=== PATIENT | female | born 1965 | race Caucasian/White ===

== ENCOUNTER 2016-10-19 20:40 | Emergency (ER) | payer MEDICAID ==
[~2016-10-19] VITALS: Ht 170.2 cm; Wt 113.6 kg
[~2016-10-19 20:40] MED LIST: ALBU18HF INH; AMLO5TAB2 PO; ASPI-515 PO; ATOR40TA78 PO; BUTA1CAP57 PO; CLIN60LO TP; CYCL-259 PO; DIPH50VI4 IVPush; ESTR0.6246 PO; FENO160T12 PO; FLUO10CA13 PO; GABA600T2 PO; HYDR-3240 PO; INSU100I13 SC; INSU100I18 SC; INSU100V5 SQ-INSULIN; LORA-445 PO; LOSA50TA2 PO; OMEP-110 PO; PROC10VI3 IV; PROC5TAB PO; SIMV20TA3 PO; TOPI25CA5 PO; TRAM-28 PO; TRAZ50TA18 PO; [UNRECOGNIZED DRUG - OTHER] PO
[2016-10-19] MEDS ORDERED: METOCLOPRAMIDE 5 MG/ML, 2ML IVPush ONE (21:30)
[2016-10-19] MEDS ORDERED: KETOROLAC 30 MG/1 ML IM ONE (21:30)
[2016-10-19] MEDS ORDERED: SODIUM CHLORIDE 0.9%, 500ML IVBOLUS ONE (21:30)
[2016-10-19] MEDS ORDERED: KETOROLAC 30 MG/1 ML ONE (21:34)
[2016-10-19] MEDS ORDERED: METOCLOPRAMIDE 5 MG/ML, 2ML ONE (21:34)
[2016-10-19] MEDS ORDERED: KETOROLAC 30 MG/1 ML IVPush ONE (22:00)
[2016-10-19 23:01] VITALS: BP 151/71
== END 2016-10-19 23:06 | disposition home or self-care (01) ==
LOC: ED 22:24
DX: G43.419 Hemiplegic migraine, intractable, without status migrainosus (principal); M54.5 Low back pain; G89.29 Other chronic pain; E11.9 Type 2 diabetes mellitus without complications; I10 Essential (primary) hypertension; Z86.73 Personal history of transient ischemic attack (TIA), and cerebral infarction without residual deficits; Z88.1 Allergy status to other antibiotic agents; Z88.8 Allergy status to other drugs, medicaments and biological substances
CPT/HCPCS: 36415; 70450; 80047; 85025; 85610; 85730; 96365; 96375; 99285; J1885; J2765; J7040

== ENCOUNTER 2016-11-25 12:50 | Observation (INO) | payer MEDICAID ==
[2016-11-25 14:53] LABS: ASPARTATE AMINO TRANSFERASE 18 U/L (15-37); BLOOD UREA NITROGEN 16 mg/dL (7-18)
[2016-11-25] MEDS ORDERED: LORazepam 2 MG/ML, 1ML ONE (15:02)
[2016-11-25 15:06] LABS: IS PT STATUS REG ER OR PRE ER? YES
[2016-11-25] MEDS ORDERED: GADOBUTROL 10 MMOL/10 ML PFS ONE (15:27)
[2016-11-25] MEDS ORDERED: ENALAPRILAT 1.25 MG/ML, 2ML IVPush PRN (17:30)
[2016-11-25] MEDS ORDERED: PROCHLORPERAZINE 5 MG/ML, 2ML IV PRN (17:30)
[2016-11-25] MEDS: BUTALB/APAP/CAFFEINE 50MG/325MG/40MG PO SCH ×2 (17:30→21:26)
[2016-11-25 17:41] VITALS: BP 130/87
[2016-11-25] MEDS ORDERED: MORPHINE SULFATE 4 MG/ML, 1ML IVPush PRN (18:00)
[2016-11-25 20:38] VITALS: BP 138/92
[2016-11-25] MEDS ORDERED: GABAPENTIN 300 MG CAPSULE PO SCH (21:00)
[2016-11-25] MEDS ORDERED: TRAZODONE 50MG TABLET PO SCH (21:00)
[2016-11-25] MEDS: INSULIN REGULAR 100 UNITS/ML, 3ML VIAL SQ-INSULIN SCH (21:00)
[2016-11-25] MEDS ORDERED: ATORVASTATIN 40 MG TABLET PO SCH (21:00)
[2016-11-25] MEDS: SODIUM CHLORIDE FLUSH 3ML SYRINGE IVF SCH (21:27)
[2016-11-25] MEDS: INSULIN DETEMIR 100 UNITS/ML, PEN SQ-INSULIN SCH (21:28)
[2016-11-26] MEDS: BUTALB/APAP/CAFFEINE 50MG/325MG/40MG PO SCH ×4 (01:30→13:27)
[2016-11-26 02:50] VITALS: BP 158/89
[2016-11-26] MEDS ORDERED: ASPIRIN 81 MG TABLET EC PO SCH (06:00)
[2016-11-26] MEDS: INSULIN REGULAR 100 UNITS/ML, 3ML VIAL SQ-INSULIN SCH ×2 (07:00→11:00)
[2016-11-26] MEDS ORDERED: PROCHLORPERAZINE 5 MG TABLET PO SCH (09:00)
[2016-11-26] MEDS ORDERED: FENOFIBRATE 145 MG TABLET PO SCH (09:00)
[2016-11-26] MEDS: SODIUM CHLORIDE FLUSH 3ML SYRINGE IVF SCH (09:00)
[2016-11-26] MEDS ORDERED: FLUOXETINE 10 MG CAP PO SCH (09:00)
[2016-11-26] MEDS ORDERED: LOSARTAN 50MG TABLET PO SCH (09:00)
[2016-11-26] MEDS: INSULIN DETEMIR 100 UNITS/ML, PEN SQ-INSULIN SCH (09:00)
[2016-11-26 09:59] VITALS: BP 147/81
[2016-11-26] MEDS ORDERED: INSULIN REGULAR 100 UNITS/ML, 3ML VIAL SQ-INSULIN SCH (12:00)
[2016-11-26] MEDS ORDERED: INSULIN ASPART 100 UNITS/ML, PEN SQ-INSULIN SCH (12:30)
[2016-11-27 14:38] LABS: IS PT STATUS REG ER OR PRE ER? NO
== END 2016-11-26 14:10 | disposition home or self-care (01) ==
LOC: ED 12:50 → INTOOBSV 15:38 → EDIP 15:38 → OBSVTOIN 15:38 → 4WST 17:27 → DCLOUNGE 11-26 13:50
PROVIDERS: ADMIT Internal Medicine; ATTEND Family Medicine
DX: G43.809 Other migraine, not intractable, without status migrainosus (principal); E11.9 Type 2 diabetes mellitus without complications; Z83.49 Family history of other endocrine, nutritional and metabolic diseases; Z82.49 Family history of ischemic heart disease and other diseases of the circulatory system; Z86.73 Personal history of transient ischemic attack (TIA), and cerebral infarction without residual deficits
CPT/HCPCS: 36415; 70450; 70553; 71010; 80053; 82962; 84484; 85025; 85610; 85730; 93005; 96372; 97162; 97166; 99285; A9585; G0378; J1815; Q0164

== ENCOUNTER 2017-02-21 15:53 | Emergency (ER) | payer MEDICAID ==
[~2017-02-21] VITALS: Ht 170.2 cm; Wt 128.9 kg
[~2017-02-21 15:53] MED LIST changes: +DIPH50VI IVPush; -DIPH50VI4 IVPush; -TRAM-28 PO; +TRAM-47 PO
[2017-02-21] MEDS ORDERED: FIORICET PO (17:37)
[2017-02-21] MEDS ORDERED: PROM12.553 RC (17:37)
[2017-02-21] MEDS ORDERED: INSU300I SQ (17:37)
[2017-02-21] MEDS ORDERED: HYDROcodone/APAP 5/325 TABLET ONE (17:52)
[2017-02-21] MEDS ORDERED: KETOROLAC 30 MG/1 ML ONE (17:52)
[2017-02-21] MEDS ORDERED: ASPIRIN 81 MG TABLET CHEW ONE (18:23)
[2017-02-21] MEDS ORDERED: ASPIRIN 81 MG TABLET CHEW PO ONE (18:30)
[2017-02-21 18:32] LABS: HEMATOCRIT 42.8 % (34.6-47.8); HEMOGLOBIN 13.8 g/dL (11.7-16.4); WHITE BLOOD COUNT 11.3 x10^3/uL (3.4-10)
[2017-02-21 18:40] VITALS: BP 145/93
[2017-02-21 18:41] LABS: BLOOD UREA NITROGEN 21 mg/dL (7-18)
== END 2017-02-21 20:27 | disposition home or self-care (01) ==
LOC: ED 18:13
DX: R07.89 Other chest pain (principal); M94.0 Chondrocostal junction syndrome [Tietze]; G89.29 Other chronic pain; E11.9 Type 2 diabetes mellitus without complications; I10 Essential (primary) hypertension; E78.00 Pure hypercholesterolemia, unspecified; G43.909 Migraine, unspecified, not intractable, without status migrainosus; Z79.82 Long term (current) use of aspirin; Z86.73 Personal history of transient ischemic attack (TIA), and cerebral infarction without residual deficits
CPT/HCPCS: 36415; 71010; 80048; 82040; 84484; 85025; 93005; 99285

== ENCOUNTER 2017-05-13 11:53 | Emergency (ER) | payer MEDICAID ==
[~2017-05-13] VITALS: Ht 172.7 cm; Wt 134.1 kg
[~2017-05-13 11:53] MED LIST changes: +FIORICET PO; +INSU300I SQ; +PROM12.553 RC
[2017-05-13 11:54] VITALS: BP 197/103
[2017-05-13] MEDS ORDERED: HYDROcodone/APAP 5/325 TABLET ONE (12:37)
[2017-05-13] MEDS ORDERED: HYDROcodone/APAP 5/325 TABLET PO PRN (13:00)
== END 2017-05-13 13:28 | disposition home or self-care (01) ==
LOC: ED 13:25
DX: S62.035A Nondisplaced fracture of proximal third of navicular [scaphoid] bone of left wrist, initial encounter for closed fracture (principal); G89.11 Acute pain due to trauma; E66.01 Morbid (severe) obesity due to excess calories; E78.00 Pure hypercholesterolemia, unspecified; I10 Essential (primary) hypertension; G89.29 Other chronic pain; E11.65 Type 2 diabetes mellitus with hyperglycemia; G43.909 Migraine, unspecified, not intractable, without status migrainosus; Z88.1 Allergy status to other antibiotic agents; W18.30XA Fall on same level, unspecified, initial encounter; Y93.89 Activity, other specified; Y92.89 Other specified places as the place of occurrence of the external cause; Y99.8 Other external cause status
CPT/HCPCS: 29125; 99284

== ENCOUNTER 2017-08-27 21:15 | Emergency (ER) | payer MEDICAID ==
[~2017-08-27] VITALS: Ht 170.2 cm; Wt 131.8 kg
[2017-08-27] MEDS ORDERED: METOCLOPRAMIDE 5 MG/ML, 2ML ONE (23:55)
[2017-08-28] MEDS ORDERED: METOCLOPRAMIDE 5 MG/ML, 2ML IVPush ONE
[2017-08-28] MEDS ORDERED: SODIUM CHLORIDE 0.9%, 500ML IVBOLUS ONE
[2017-08-28 07:09] VITALS: BP 144/77
== END 2017-08-28 07:11 | disposition home or self-care (01) ==
LOC: ED 23:44
DX: R51 Headache (principal); I10 Essential (primary) hypertension; E11.9 Type 2 diabetes mellitus without complications; E66.01 Morbid (severe) obesity due to excess calories; G43.909 Migraine, unspecified, not intractable, without status migrainosus; Z86.73 Personal history of transient ischemic attack (TIA), and cerebral infarction without residual deficits; Z88.1 Allergy status to other antibiotic agents
CPT/HCPCS: 96374; 99284; J2765; J7040

== ENCOUNTER 2018-01-06 21:54 | Inpatient (IN) | payer MEDICAID, OTHER ==
[~2018-01-06] VITALS: Ht 170.2 cm; Wt 144.6 kg
[2018-01-06 23:05] LABS: BASOPHILS # (AUTO) 0.07 x10^3/uL (0-0.1); BASOPHILS % (AUTO) 1 % (0-1); EOSINOPHILS # (AUTO) 0.18 x10^3/uL (0-0.4); EOSINOPHILS % (AUTO) 2 % (1-7); LYMPHOCYTES # (AUTO) 3.36 x10^3/uL (1-3.4); LYMPHOCYTES % (AUTO) 29 % (22-44); MD NO; MEAN CORPUSCULAR HEMOGLOBIN 28.2 pg (27.0-34.8); MEAN CORPUSCULAR HGB CONC 33.2 g/dL (32.4-35.8); MEAN PLATELET VOLUME 10.1 fL (7.4-10.4); MONOCYTES # (AUTO) 0.69 x10^3/uL (0.2-0.8); MONOCYTES % (AUTO) 6 % (2-9); NEUTROPHILS # (AUTO) 7.26 x10^3/uL (1.8-6.8); NEUTROPHILS % (AUTO) 63 % (42-75); PLATELET COUNT 274 x10^3/uL (130-400); RED CELL DISTRIBUTION WIDTH 16.9 % (9.6-15.2)
[2018-01-06 23:18] LABS: ALANINE AMINOTRANSFERASE 51 U/L (12-78); ALBUMIN 3.1 g/dL (3.4-5.0); ANION GAP 9 mmol/L (5-15); CALCIUM 9.6 mg/dL (8.5-10.1); CHLORIDE 106 mmol/L (98-107); CREATININE 1.66 mg/dL (0.55-1.02)
[2018-01-06 23:20] LABS: ALKALINE PHOSPHATASE 63 U/L (45-117); BILIRUBIN,TOTAL 0.2 mg/dL (0.2-1.0); TOTAL PROTEIN 6.6 g/dL (6.4-8.2)
[2018-01-07] MEDS ORDERED: CLINDAMYCIN PMX 600MG/50ML 50 ML IV ONE (00:30)
[2018-01-07] MEDS ORDERED: CLINDAMYCIN PMX 600MG/50ML 50 ML ONE (00:40)
[2018-01-07] MEDS ORDERED: SODIUM CHLORIDE 0.9% 1,000 ML IV ONE (00:49)
[2018-01-07] MEDS ORDERED: ONDANSETRON 2MG/ML, 2ML IVPush PRN (01:00)
[2018-01-07] MEDS ORDERED: DIVA-68 PO (01:12)
[2018-01-07] MEDS ORDERED: FENO160T PO (01:12)
[2018-01-07] MEDS ORDERED: AMLO5TAB2 PO (01:12)
[2018-01-07] MEDS ORDERED: FLUO10CA7 PO (01:12)
[2018-01-07] MEDS ORDERED: AIMOVIG PO (01:13)
[2018-01-07] MEDS ORDERED: ENOXAPARIN 30 MG/0.3 ML SQ SCH (01:30)
[2018-01-07] MEDS ORDERED: DEXTROSE 4 GM TAB.CHEW PO PRN (01:30)
[2018-01-07] MEDS ORDERED: PROMETHAZINE 12.5 MG SUPP PR SCH (01:30)
[2018-01-07] MEDS ORDERED: GLUCAGON 1 MG IM PRN (01:30)
[2018-01-07] MEDS ORDERED: DEXTROSE 50%, 50ML SYRINGE IVPush PRN (01:30)
[2018-01-07] MEDS ORDERED: ONDANSETRON ODT 4 MG PO PRN (01:30)
[2018-01-07] MEDS ORDERED: POLYETHYLENE GLYCOL 17 GM PACKET PO PRN (01:30)
[2018-01-07] MEDS ORDERED: HYDROCHLOROTHIAZIDE 12.5 MG CAPSULE PO ONE (02:00)
[2018-01-07 02:35] VITALS: BP 112/76
[2018-01-07] MEDS: SODIUM CHLORIDE 0.9% 1,000 ML IV SCH ×2 (02:37→12:34)
[2018-01-07 03:07] LABS: BASOPHILS # (AUTO) 0.03 x10^3/uL (0-0.1); BASOPHILS % (AUTO) 0 % (0-1); EOSINOPHILS # (AUTO) 0.22 x10^3/uL (0-0.4); EOSINOPHILS % (AUTO) 2 % (1-7); LYMPHOCYTES # (AUTO) 3.88 x10^3/uL (1-3.4); LYMPHOCYTES % (AUTO) 32 % (22-44); MD NO; MEAN CORPUSCULAR HEMOGLOBIN 28.3 pg (27.0-34.8); MEAN CORPUSCULAR HGB CONC 33.1 g/dL (32.4-35.8); MEAN CORPUSCULAR VOLUME 85.6 fL (80-100); MEAN PLATELET VOLUME 9.6 fL (7.4-10.4); MONOCYTES # (AUTO) 1.13 x10^3/uL (0.2-0.8); MONOCYTES % (AUTO) 10 % (2-9); NEUTROPHILS % (AUTO) 56 % (42-75); PLATELET COUNT 274 x10^3/uL (130-400); RED BLOOD COUNT 5.02 x10^6/uL (3.82-5.3); RED CELL DISTRIBUTION WIDTH 16.9 % (9.6-15.2)
[2018-01-07 03:16] LABS: MICROSCOPIC AUTO
[2018-01-07 03:19] LABS: ANION GAP 7 mmol/L (5-15); CALCIUM 9.4 mg/dL (8.5-10.1); CHLORIDE 107 mmol/L (98-107); CREATININE 1.38 mg/dL (0.55-1.02)
[2018-01-07 03:34] LABS: CULTURE INDICATED? YES
[2018-01-07 05:17] VITALS: BP 112/76
[2018-01-07 06:46] VITALS: BP 103/72
[2018-01-07] MEDS: SODIUM CHLORIDE FLUSH 10ML SYR IVF SCH ×2 (08:11→19:51)
[2018-01-07] MEDS: FLUOXETINE 10 MG CAP PO SCH (08:12)
[2018-01-07] MEDS: FAMOTIDINE 20 MG TABLET PO SCH ×2 (08:13→19:51)
[2018-01-07] MEDS: SENNA/DOCUSATE TABLET PO SCH (08:13)
[2018-01-07] MEDS: FUROSEMIDE 20 MG TABLET PO SCH (08:13)
[2018-01-07] MEDS: FENOFIBRATE 145 MG TABLET PO SCH (08:17)
[2018-01-07] MEDS: ENOXAPARIN 40 MG/0.4 ML SQ SCH (08:17)
[2018-01-07] MEDS ORDERED: LOSARTAN POTASSIUM 100 MG PO SCH (09:00)
[2018-01-07] MEDS ORDERED: TEMPLATE NON-FORMULARY MED. (Amlodipine Besylate** 5 MG) PO SCH (09:00)
[2018-01-07] MEDS ORDERED: DIVALPROEX SODIUM 500 MG PO SCH (09:00)
[2018-01-07] MEDS: CLINDAMYCIN PMX 600MG/50ML 50 ML IV SCH ×2 (10:13→17:38)
[2018-01-07] MEDS: CLINDAMYCIN TP SCH (10:13)
[2018-01-07] MEDS: INSULIN LISPRO 100 UNITS/ML, PEN SQ-INSULIN SCH ×4 (10:29→20:01)
[2018-01-07 13:55] VITALS: BP 111/77
[2018-01-07] MEDS: TRAZODONE 50MG TABLET PO SCH (19:50)
[2018-01-07] MEDS: ATORVASTATIN 40 MG TABLET PO SCH (19:51)
[2018-01-07] MEDS ORDERED: INSULIN GLARGINE 100 UNITS/ML, PEN SQ-INSULIN SCH ×2 (21:00)
[2018-01-07] MEDS ORDERED: TEMPLATE NON-FORMULARY MED. (Gabapentin** 600 MG) PO SCH (21:00)
[2018-01-07] MEDS: INSULIN GLARGINE 100 UNITS/ML, PEN SQ-INSULIN SCH (21:04)
[2018-01-07 21:24] VITALS: BP 130/83
[2018-01-08] MEDS ORDERED: SODIUM CHLORIDE 0.9% 1,000 ML IV SCH (01:10)
[2018-01-08] MEDS: CLINDAMYCIN PMX 600MG/50ML 50 ML IV SCH ×3 (01:16→17:20)
[2018-01-08 02:00] VITALS: BP 143/81
[2018-01-08 05:51] LABS: ANION GAP 7 mmol/L (5-15); CALCIUM 8.8 mg/dL (8.5-10.1); CHLORIDE 107 mmol/L (98-107); CREATININE 0.92 mg/dL (0.55-1.02)
[2018-01-08 06:03] LABS: BASOPHILS # (AUTO) 0.04 x10^3/uL (0-0.1); BASOPHILS % (AUTO) 1 % (0-1); EOSINOPHILS # (AUTO) 0.17 x10^3/uL (0-0.4); EOSINOPHILS % (AUTO) 2 % (1-7); LYMPHOCYTES # (AUTO) 2.28 x10^3/uL (1-3.4); LYMPHOCYTES % (AUTO) 31 % (22-44); MD NO; MEAN CORPUSCULAR HGB CONC 32.8 g/dL (32.4-35.8); MEAN CORPUSCULAR VOLUME 85.4 fL (80-100); MEAN PLATELET VOLUME 9.7 fL (7.4-10.4); MONOCYTES # (AUTO) 0.71 x10^3/uL (0.2-0.8); MONOCYTES % (AUTO) 10 % (2-9); NEUTROPHILS # (AUTO) 4.27 x10^3/uL (1.8-6.8); NEUTROPHILS % (AUTO) 57 % (42-75); PLATELET COUNT 218 x10^3/uL (130-400); RED BLOOD COUNT 4.74 x10^6/uL (3.82-5.3); RED CELL DISTRIBUTION WIDTH 16.5 % (9.6-15.2)
[2018-01-08] MEDS: INSULIN LISPRO 100 UNITS/ML, PEN SQ-INSULIN SCH ×4 (07:00→21:13)
[2018-01-08 07:02] VITALS: BP 136/83
[2018-01-08] MEDS: CLINDAMYCIN TP SCH (09:00)
[2018-01-08] MEDS: SENNA/DOCUSATE TABLET PO SCH (09:00)
[2018-01-08] MEDS: SODIUM CHLORIDE FLUSH 10ML SYR IVF SCH ×2 (09:44→21:00)
[2018-01-08] MEDS: INSULIN GLARGINE 100 UNITS/ML, PEN SQ-INSULIN SCH ×2 (09:45→21:12)
[2018-01-08] MEDS: ENOXAPARIN 40 MG/0.4 ML SQ SCH (09:45)
[2018-01-08] MEDS: FLUOXETINE 10 MG CAP PO SCH (09:46)
[2018-01-08] MEDS: FAMOTIDINE 20 MG TABLET PO SCH ×2 (09:46→21:05)
[2018-01-08] MEDS: FENOFIBRATE 145 MG TABLET PO SCH (09:46)
[2018-01-08] MEDS: FUROSEMIDE 20 MG TABLET PO SCH (09:47)
[2018-01-08 12:17] VITALS: BP 121/77
[2018-01-08] MEDS: GABAPENTIN 400 MG CAPSULE PO SCH ×2 (15:59→21:05)
[2018-01-08] MEDS ORDERED: POTASSIUM CHLORIDE 20 MEQ TAB.ER.PRT PO SCH (17:00)
[2018-01-08] MEDS ORDERED: FUROSEMIDE 20 MG TABLET PO SCH (17:00)
[2018-01-08 18:45] VITALS: BP 127/83
[2018-01-08] MEDS: TRAZODONE 50MG TABLET PO SCH (21:05)
[2018-01-08] MEDS: ATORVASTATIN 40 MG TABLET PO SCH (21:05)
[2018-01-09 00:43] VITALS: BP 115/61
[2018-01-09] MEDS: CLINDAMYCIN PMX 600MG/50ML 50 ML IV SCH ×2 (00:51→09:33)
[2018-01-09 05:33] LABS: BASOPHILS # (AUTO) 0.05 x10^3/uL (0-0.1); BASOPHILS % (AUTO) 1 % (0-1); EOSINOPHILS # (AUTO) 0.21 x10^3/uL (0-0.4); EOSINOPHILS % (AUTO) 2 % (1-7); LYMPHOCYTES # (AUTO) 2.79 x10^3/uL (1-3.4); LYMPHOCYTES % (AUTO) 31 % (22-44); MD NO; MEAN CORPUSCULAR HEMOGLOBIN 28.6 pg (27.0-34.8); MEAN CORPUSCULAR HGB CONC 33.2 g/dL (32.4-35.8); MEAN CORPUSCULAR VOLUME 86.1 fL (80-100); MEAN PLATELET VOLUME 9.7 fL (7.4-10.4); MONOCYTES # (AUTO) 0.81 x10^3/uL (0.2-0.8); MONOCYTES % (AUTO) 9 % (2-9); NEUTROPHILS # (AUTO) 5.02 x10^3/uL (1.8-6.8); NEUTROPHILS % (AUTO) 57 % (42-75); PLATELET COUNT 250 x10^3/uL (130-400); RED BLOOD COUNT 4.91 x10^6/uL (3.82-5.3); RED CELL DISTRIBUTION WIDTH 16.5 % (9.6-15.2)
[2018-01-09 05:44] LABS: ANION GAP 6 mmol/L (5-15); CALCIUM 9.1 mg/dL (8.5-10.1); CHLORIDE 107 mmol/L (98-107); CREATININE 0.95 mg/dL (0.55-1.02)
[2018-01-09] MEDS: INSULIN LISPRO 100 UNITS/ML, PEN SQ-INSULIN SCH ×2 (08:04→12:18)
[2018-01-09] MEDS: ENOXAPARIN 40 MG/0.4 ML SQ SCH (08:31)
[2018-01-09] MEDS: GABAPENTIN 400 MG CAPSULE PO SCH (08:31)
[2018-01-09] MEDS: FLUOXETINE 10 MG CAP PO SCH (08:32)
[2018-01-09] MEDS: FAMOTIDINE 20 MG TABLET PO SCH (08:32)
[2018-01-09] MEDS: FENOFIBRATE 145 MG TABLET PO SCH (08:32)
[2018-01-09] MEDS: INSULIN GLARGINE 100 UNITS/ML, PEN SQ-INSULIN SCH (08:32)
[2018-01-09] MEDS: SENNA/DOCUSATE TABLET PO SCH (08:33)
[2018-01-09] MEDS: SODIUM CHLORIDE FLUSH 10ML SYR IVF SCH (08:33)
[2018-01-09] MEDS: CLINDAMYCIN TP SCH (08:33)
[2018-01-09] MEDS: FUROSEMIDE 20 MG TABLET PO SCH (08:33)
[2018-01-09 08:39] VITALS: BP 164/102
[2018-01-09 13:14] VITALS: BP 124/77
[2018-01-09] MEDS ORDERED: SULF1TAB24 PO (15:14)
== END 2018-01-09 19:41 | disposition home or self-care (01) | DRG 603 ==
LOC: ED 23:59 → EDIP 01-07 00:49 → 3NE 01-07 02:06
PROVIDERS: ADMIT Student in an Organized Health Care Education/Training Program; ATTEND Student in an Organized Health Care Education/Training Program
DX: L03.116 Cellulitis of left lower limb (principal); Z68.42 Body mass index [BMI] 45.0-49.9, adult; I69.351 Hemiplegia and hemiparesis following cerebral infarction affecting right dominant side; N17.9 Acute kidney failure, unspecified; E11.9 Type 2 diabetes mellitus without complications; E66.01 Morbid (severe) obesity due to excess calories; Z88.8 Allergy status to other drugs, medicaments and biological substances; Z88.6 Allergy status to analgesic agent; Z91.041 Radiographic dye allergy status; E78.00 Pure hypercholesterolemia, unspecified; E78.5 Hyperlipidemia, unspecified; F32.9 Major depressive disorder, single episode, unspecified; G43.909 Migraine, unspecified, not intractable, without status migrainosus; I10 Essential (primary) hypertension; I87.2 Venous insufficiency (chronic) (peripheral); J45.909 Unspecified asthma, uncomplicated; Z79.4 Long term (current) use of insulin; Z87.442 Personal history of urinary calculi; Z88.9 Allergy status to unspecified drugs, medicaments and biological substances; Z90.710 Acquired absence of both cervix and uterus; Z83.3 Family history of diabetes mellitus
CPT/HCPCS: 36415; 80048; 80053; 81001; 82962; 83605; 84145; 85025; 87040; 87070; 87077; 87086; 87147; 87181; 87186; 87205; 99285; J1650; J1815; J7030

== ENCOUNTER → 2018-01-13 | Outpatient (CLI) | payer MEDICAID ==
[~2018-01-13] MED LIST changes: +AIMOVIG PO; +DIVA-61 PO; +FENO160T PO; +FLUO10CA7 PO; +SULF1TAB24 PO; +TRAZ-136 PO; -TRAZ50TA18 PO
== END | disposition home or self-care (01) ==
LOC: WOUND 09:00
PROVIDERS: ATTEND Internal Medicine
DX: E11.622 Type 2 diabetes mellitus with other skin ulcer (principal); L97.312 Non-pressure chronic ulcer of right ankle with fat layer exposed; L97.821 Non-pressure chronic ulcer of other part of left lower leg limited to breakdown of skin; E78.5 Hyperlipidemia, unspecified; E66.01 Morbid (severe) obesity due to excess calories; F32.9 Major depressive disorder, single episode, unspecified; E78.00 Pure hypercholesterolemia, unspecified; J45.909 Unspecified asthma, uncomplicated; I10 Essential (primary) hypertension; I87.2 Venous insufficiency (chronic) (peripheral); Z86.73 Personal history of transient ischemic attack (TIA), and cerebral infarction without residual deficits; Z90.710 Acquired absence of both cervix and uterus; Z68.42 Body mass index [BMI] 45.0-49.9, adult; Z79.4 Long term (current) use of insulin
CPT/HCPCS: 97597; 99215

== ENCOUNTER → 2018-01-20 | Outpatient (CLI) | payer MEDICAID ==
[~2018-01-20] MED LIST changes: +ACETAM; -AMLO5TAB2 PO; +AMLO5TAB7 PO; +AMLODIPINE; +AMOX1TAB12 PO; -DIPH50VI IVPush; +DIPH50VI10 IVPush; +DIVALPROEX; +GABA800T2 PO; -PROC5TAB PO; +PROC5TAB2 PO; +PROMETHAZINE; +[UNRECOGNIZED DRUG - OTHER]
== END | disposition home or self-care (01) ==
LOC: WOUND 10:00
PROVIDERS: ATTEND Internal Medicine
DX: E11.622 Type 2 diabetes mellitus with other skin ulcer (principal); L97.312 Non-pressure chronic ulcer of right ankle with fat layer exposed; L97.821 Non-pressure chronic ulcer of other part of left lower leg limited to breakdown of skin; E78.5 Hyperlipidemia, unspecified; E66.01 Morbid (severe) obesity due to excess calories; F32.9 Major depressive disorder, single episode, unspecified; E78.00 Pure hypercholesterolemia, unspecified; E03.9 Hypothyroidism, unspecified; J45.909 Unspecified asthma, uncomplicated; I87.2 Venous insufficiency (chronic) (peripheral); E11.42 Type 2 diabetes mellitus with diabetic polyneuropathy; I11.0 Hypertensive heart disease with heart failure; I50.9 Heart failure, unspecified; G43.909 Migraine, unspecified, not intractable, without status migrainosus; Z86.73 Personal history of transient ischemic attack (TIA), and cerebral infarction without residual deficits; Z90.710 Acquired absence of both cervix and uterus; Z88.4 Allergy status to anesthetic agent; Z88.1 Allergy status to other antibiotic agents; Z88.5 Allergy status to narcotic agent; Z88.8 Allergy status to other drugs, medicaments and biological substances; Z88.6 Allergy status to analgesic agent; Z91.030 Bee allergy status; Z79.4 Long term (current) use of insulin; Z68.43 Body mass index [BMI] 50.0-59.9, adult; Z79.899 Other long term (current) drug therapy
CPT/HCPCS: 97597

== ENCOUNTER → 2018-01-27 | Outpatient (CLI) | payer MEDICAID ==
[~2018-01-27] MED LIST changes: -ACETAM; +AMLO5TAB2 PO; -AMLO5TAB7 PO; -AMLODIPINE; -AMOX1TAB12 PO; +DIPH50VI IVPush; -DIPH50VI10 IVPush; -DIVALPROEX; -GABA800T2 PO; +PROC5TAB PO; -PROC5TAB2 PO; -PROMETHAZINE; -[UNRECOGNIZED DRUG - OTHER]
== END | disposition home or self-care (01) ==
LOC: WOUND 10:24
PROVIDERS: ATTEND Internal Medicine
DX: E11.622 Type 2 diabetes mellitus with other skin ulcer (principal); L97.821 Non-pressure chronic ulcer of other part of left lower leg limited to breakdown of skin; L97.312 Non-pressure chronic ulcer of right ankle with fat layer exposed; I10 Essential (primary) hypertension; E66.01 Morbid (severe) obesity due to excess calories; E78.5 Hyperlipidemia, unspecified; E78.00 Pure hypercholesterolemia, unspecified; I87.2 Venous insufficiency (chronic) (peripheral); G43.909 Migraine, unspecified, not intractable, without status migrainosus; J45.909 Unspecified asthma, uncomplicated; F32.9 Major depressive disorder, single episode, unspecified; Z68.42 Body mass index [BMI] 45.0-49.9, adult; Z79.4 Long term (current) use of insulin; Z90.710 Acquired absence of both cervix and uterus; Z86.73 Personal history of transient ischemic attack (TIA), and cerebral infarction without residual deficits; Z88.9 Allergy status to unspecified drugs, medicaments and biological substances
CPT/HCPCS: 97597

== ENCOUNTER → 2018-03-05 | Outpatient (CLI) | payer MEDICAID ==
[~2018-03-05] MED LIST changes: +ACETAM; -AMLO5TAB2 PO; +AMLO5TAB7 PO; +AMLODIPINE; +AMOX1TAB12 PO; -DIPH50VI IVPush; +DIPH50VI10 IVPush; +DIVALPROEX; +GABA800T2 PO; -PROC5TAB PO; +PROC5TAB2 PO; +PROMETHAZINE; +[UNRECOGNIZED DRUG - OTHER]
== END | disposition home or self-care (01) ==
LOC: CVU 09:18
PROVIDERS: ATTEND Internal Medicine
DX: I70.202 Unspecified atherosclerosis of native arteries of extremities, left leg (principal); I87.2 Venous insufficiency (chronic) (peripheral); E11.8 Type 2 diabetes mellitus with unspecified complications; L97.821 Non-pressure chronic ulcer of other part of left lower leg limited to breakdown of skin; M79.89 Other specified soft tissue disorders; I10 Essential (primary) hypertension; I69.354 Hemiplegia and hemiparesis following cerebral infarction affecting left non-dominant side; E78.5 Hyperlipidemia, unspecified; E78.00 Pure hypercholesterolemia, unspecified
CPT/HCPCS: 93922; 93925; 93970

== ENCOUNTER → 2018-03-22 | Outpatient (CLI) | payer MEDICAID | END | disposition home or self-care (01) | LOC: WOUND 10:05 | PROVIDERS: ATTEND Internal Medicine | DX: E11.622 Type 2 diabetes mellitus with other skin ulcer (principal); L97.312 Non-pressure chronic ulcer of right ankle with fat layer exposed; E11.42 Type 2 diabetes mellitus with diabetic polyneuropathy; I10 Essential (primary) hypertension; F32.9 Major depressive disorder, single episode, unspecified; J45.909 Unspecified asthma, uncomplicated; G43.909 Migraine, unspecified, not intractable, without status migrainosus; E78.5 Hyperlipidemia, unspecified; E78.00 Pure hypercholesterolemia, unspecified; E03.9 Hypothyroidism, unspecified; E66.01 Morbid (severe) obesity due to excess calories; Z68.43 Body mass index [BMI] 50.0-59.9, adult; Z90.710 Acquired absence of both cervix and uterus; Z79.4 Long term (current) use of insulin; Z86.73 Personal history of transient ischemic attack (TIA), and cerebral infarction without residual deficits; Z88.5 Allergy status to narcotic agent; Z88.8 Allergy status to other drugs, medicaments and biological substances; Z88.1 Allergy status to other antibiotic agents; Z91.030 Bee allergy status; Z91.041 Radiographic dye allergy status | CPT/HCPCS: 99213 ==

== ENCOUNTER 2018-05-27 13:02 | Emergency (ER) | payer MEDICAID ==
[~2018-05-27] VITALS: Ht 170.2 cm; Wt 141.0 kg
[~2018-05-27 13:02] MED LIST changes: +AMLO-150 PO; -AMLO5TAB7 PO; -TRAZ-136 PO; +TRAZ50TA66 PO
[2018-05-27] MEDS ORDERED: SODIUM CHLORIDE FLUSH 10ML SYR IVF ONE (14:00)
[2018-05-27] MEDS ORDERED: KETOROLAC 30 MG/1 ML IVPush ONE (14:00)
[2018-05-27] MEDS ORDERED: ACETAMINOPHEN 325 MG TABLET PO ONE (14:00)
[2018-05-27] MEDS ORDERED: PROCHLORPERAZINE 5 MG/ML, 2ML IVPush ONE (14:00)
[2018-05-27] MEDS ORDERED: DIPHENHYDRAMINE 50 MG/ML, 1ML IVPush ONE (14:00)
[2018-05-27 14:15] LABS: BASOPHILS # (AUTO) 0.02 x10^3/uL (0-0.1); BASOPHILS % (AUTO) 0 % (0-1); EOSINOPHILS # (AUTO) 0.29 x10^3/uL (0-0.4); EOSINOPHILS % (AUTO) 3 % (1-7); LYMPHOCYTES # (AUTO) 2.08 x10^3/uL (1-3.4); LYMPHOCYTES % (AUTO) 20 % (22-44); MD NO; MEAN CORPUSCULAR HEMOGLOBIN 27.2 pg (27.0-34.8); MEAN CORPUSCULAR VOLUME 82.2 fL (80-100); MEAN PLATELET VOLUME 9.5 fL (7.4-10.4); MONOCYTES # (AUTO) 0.63 x10^3/uL (0.2-0.8); MONOCYTES % (AUTO) 6 % (2-9); NEUTROPHILS # (AUTO) 7.26 x10^3/uL (1.8-6.8); NEUTROPHILS % (AUTO) 71 % (42-75); PLATELET COUNT 287 x10^3/uL (130-400); RED BLOOD COUNT 5.15 x10^6/uL (3.82-5.3); RED CELL DISTRIBUTION WIDTH 15.9 % (9.6-15.2)
[2018-05-27 14:27] LABS: ALANINE AMINOTRANSFERASE 50 U/L (12-78); ALBUMIN 3.2 g/dL (3.4-5.0); ANION GAP 6 mmol/L (5-15); CHLORIDE 101 mmol/L (98-107); CREATININE 1.15 mg/dL (0.55-1.02)
[2018-05-27 14:29] LABS: ALKALINE PHOSPHATASE 77 U/L (45-117); BILIRUBIN,TOTAL 0.3 mg/dL (0.2-1.0); TOTAL PROTEIN 7.3 g/dL (6.4-8.2)
[2018-05-27] MEDS ORDERED: ACETAMINOPHEN 325 MG TABLET ONE (14:52)
[2018-05-27] MEDS ORDERED: DIPHENHYDRAMINE 50 MG/ML, 1ML ONE (14:52)
[2018-05-27] MEDS ORDERED: PROCHLORPERAZINE 5 MG/ML, 2ML ONE (14:52)
[2018-05-27] MEDS ORDERED: KETOROLAC 30 MG/1 ML ONE (14:52)
[2018-05-27 15:05] VITALS: BP 139/75
== END 2018-05-27 16:14 | disposition home or self-care (01) ==
LOC: ED 16:08
DX: G43.019 Migraine without aura, intractable, without status migrainosus (principal); L03.116 Cellulitis of left lower limb; E11.65 Type 2 diabetes mellitus with hyperglycemia; I10 Essential (primary) hypertension; E78.00 Pure hypercholesterolemia, unspecified; E66.01 Morbid (severe) obesity due to excess calories; Z68.42 Body mass index [BMI] 45.0-49.9, adult; Z86.73 Personal history of transient ischemic attack (TIA), and cerebral infarction without residual deficits; Z90.710 Acquired absence of both cervix and uterus
CPT/HCPCS: 36415; 73590; 80053; 83605; 85025; 93971; 96374; 96375; 99284; J0780; J1200; J1885

== ENCOUNTER 2018-09-08 17:35 | Emergency (ER) | payer MEDICAID ==
[~2018-09-08] VITALS: Ht 170.2 cm; Wt 135.7 kg
[~2018-09-08 17:35] MED LIST changes: -GABA600T2 PO; +GABA600T7 PO; -GABA800T2 PO; +GABA800T5 PO
[2018-09-08] MEDS ORDERED: DIPH,PERTUSS(ACELL),TET VAC/PF 0.5 ML IM-VACC ONE ×2 (18:00→20:36)
[2018-09-08 18:53] LABS: BASOPHILS # (AUTO) 0.01 x10^3/uL (0-0.1); BASOPHILS % (AUTO) 0 % (0-1); EOSINOPHILS # (AUTO) 0.52 x10^3/uL (0-0.4); EOSINOPHILS % (AUTO) 5 % (1-7); LYMPHOCYTES # (AUTO) 2.33 x10^3/uL (1-3.4); LYMPHOCYTES % (AUTO) 20 % (22-44); MD NO; MEAN CORPUSCULAR HEMOGLOBIN 27.6 pg (27.0-34.8); MEAN CORPUSCULAR HGB CONC 33.2 g/dL (32.4-35.8); MEAN PLATELET VOLUME 9.2 fL (7.4-10.4); MONOCYTES % (AUTO) 5 % (2-9); NEUTROPHILS # (AUTO) 8.03 x10^3/uL (1.8-6.8); NEUTROPHILS % (AUTO) 70 % (42-75); PLATELET COUNT 304 x10^3/uL (130-400); RED BLOOD COUNT 4.94 x10^6/uL (3.82-5.3); RED CELL DISTRIBUTION WIDTH 15.9 % (9.6-15.2)
[2018-09-08 19:00] LABS: ALBUMIN 3.5 g/dL (3.4-5.0); ANION GAP 5 mmol/L (5-15); CALCIUM 9.2 mg/dL (8.5-10.1); CHLORIDE 101 mmol/L (98-107)
[2018-09-08 19:01] LABS: CREATININE 1.19 mg/dL (0.55-1.02)
--- NOTE | 2018-09-08 19:35 | NUR ---
TO ROOM FROM LOBBY. NAD.
--- NOTE | 2018-09-08 19:45 | NUR ---
Pt ambulated to room with friend and cane.
--- NOTE | 2018-09-08 20:46 | NUR ---
Pt medicated per MAR.
--- NOTE | 2018-09-08 20:50 | NUR ---
Kylee MCCORD, at bedside to discuss ED findings and POC.
[2018-09-08 21:06] VITALS: BP 113/81
--- NOTE | 2018-09-08 21:07 | NUR ---
Patient/Caregiver given discharge instructions and they have confirmed that they understand the instructions. Patient ambulatory with steady gait.
== END 2018-09-08 21:18 | disposition home or self-care (01) ==
LOC: ED 21:12
DX: M79.662 Pain in left lower leg (principal); L03.116 Cellulitis of left lower limb; E78.00 Pure hypercholesterolemia, unspecified; I10 Essential (primary) hypertension; E11.9 Type 2 diabetes mellitus without complications; G89.29 Other chronic pain; E66.01 Morbid (severe) obesity due to excess calories; Z68.42 Body mass index [BMI] 45.0-49.9, adult
CPT/HCPCS: 36415; 80048; 82040; 85025; 90471; 90715

== ENCOUNTER 2019-06-07 21:30 | Inpatient (IN) | payer MEDICAID ==
[~2019-06-07] VITALS: Ht 170.2 cm; Wt 141.2 kg
[2019-06-07] MEDS ORDERED: PROMETHAZINE 25 MG/ML, 1ML IM ONE (23:00)
[2019-06-07] MEDS ORDERED: BUTALB/APAP/CAFFEINE 50MG/325MG/40MG PO ONE (23:00)
[2019-06-07] MEDS ORDERED: SODIUM CHLORIDE FLUSH 10ML SYR IVF ONE (23:00)
[2019-06-07] MEDS ORDERED: PROMETHAZINE 25 MG/ML, 1ML ONE (23:22)
[2019-06-07] MEDS ORDERED: SODIUM CHLORIDE 0.9%, 500ML IVBOLUS ONE (23:30)
[2019-06-07 23:37] LABS: BASOPHILS # (AUTO) 0.05 x10^3/uL (0-0.1); BASOPHILS % (AUTO) 1 % (0-1); EOSINOPHILS # (AUTO) 0.26 x10^3/uL (0-0.4); EOSINOPHILS % (AUTO) 3 % (1-7); LYMPHOCYTES # (AUTO) 2.04 x10^3/uL (1-3.4); LYMPHOCYTES % (AUTO) 20 % (22-44); MD NO; MEAN CORPUSCULAR HEMOGLOBIN 27.5 pg (27.0-34.8); MEAN CORPUSCULAR HGB CONC 32.5 g/dL (32.4-35.8); MEAN CORPUSCULAR VOLUME 84.7 fL (80-100); MONOCYTES # (AUTO) 0.68 x10^3/uL (0.2-0.8); MONOCYTES % (AUTO) 7 % (2-9); NEUTROPHILS # (AUTO) 7.38 x10^3/uL (1.8-6.8); NEUTROPHILS % (AUTO) 71 % (42-75); PLATELET COUNT 214 x10^3/uL (130-400); RED BLOOD COUNT 4.57 x10^6/uL (3.82-5.3); RED CELL DISTRIBUTION WIDTH 16.5 % (9.6-15.2)
[2019-06-07 23:49] LABS: ALANINE AMINOTRANSFERASE 27 U/L (12-78); ALBUMIN 2.5 g/dL (3.4-5.0); ANION GAP 8 mmol/L (5-15); CHLORIDE 95 mmol/L (98-107); CREATININE 1.55 mg/dL (0.55-1.02)
[2019-06-07 23:52] LABS: ALKALINE PHOSPHATASE 111 U/L (45-117); BILIRUBIN,TOTAL 0.3 mg/dL (0.2-1.0); TOTAL PROTEIN 7.9 g/dL (6.4-8.2)
[2019-06-08 00:24] LABS: MICROSCOPIC INDICATED
[2019-06-08 00:36] LABS: CULTURE INDICATED? NO
[2019-06-08] MEDS: SODIUM CHLORIDE 0.9% 1,000 ML IV SCH ×3 (01:17→20:30)
[2019-06-08] MEDS: LINEZOLID PMX 600MG/300ML 300 ML IV SCH ×2 (01:44→14:00)
[2019-06-08] MEDS ORDERED: IBUPROFEN 600 MG TABLET PO PRN (02:00)
[2019-06-08] MEDS ORDERED: ACETAMINOPHEN 325 MG TABLET PO PRN (02:00)
[2019-06-08] MEDS ORDERED: LABETALOL 5 MG/ML SYR. (IV ONLY) IVPush PRN (02:00)
[2019-06-08] MEDS ORDERED: ONDANSETRON ODT 4 MG PO PRN (02:00)
[2019-06-08] MEDS ORDERED: ENALAPRILAT 1.25 MG/ML, 2ML IVPush PRN (02:00)
--- NOTE | 2019-06-08 02:07 | NUR ---
PRIOR TO THIS RN ASSUMING ASSIGNMENT JANET DIEGO HAD CALLED REPORT TO JANET FOX ON THE FLOOR. PT. BEING TRANSPORTED TO FLOOR NOW.
[2019-06-08] MEDS ORDERED: NS + 20MEQ KCL 1,000 ML IV SCH (02:11)
[2019-06-08 02:30] VITALS: BP 106/73
[2019-06-08] MEDS ORDERED: morphine SULFATE 10 MG/ML, 1ML IVPush PRN (02:30)
[2019-06-08] MEDS: ENOXAPARIN 40 MG/0.4 ML SQ SCH (04:07)
[2019-06-08 09:08] VITALS: BP 127/85
[2019-06-08] MEDS: GABAPENTIN 400 MG CAPSULE PO SCH ×3 (09:10→21:06)
[2019-06-08] MEDS: DIVALPROEX 500 MG TAB.ER.24H PO SCH (09:10)
[2019-06-08] MEDS: LOSARTAN 50MG TABLET PO SCH (09:10)
[2019-06-08] MEDS: FENOFIBRATE 145 MG TABLET PO SCH (09:10)
[2019-06-08] MEDS: FLUOXETINE 10 MG CAP PO SCH (09:11)
[2019-06-08] MEDS: INSULIN LISPRO 100 UNITS/ML, PEN SQ-INSULIN SCH ×4 (09:58→21:07)
[2019-06-08] MEDS ORDERED: INSU100V8 SQ (10:01)
[2019-06-08] MEDS: BUTALB/APAP/CAFFEINE 50MG/325MG/40MG PO PRN ×2 (11:55→16:15)
[2019-06-08 14:06] VITALS: BP 101/68
[2019-06-08 20:25] VITALS: BP 107/72
[2019-06-08] MEDS ORDERED: INSULIN GLARGINE 100 UNITS/ML, PEN SQ-INSULIN SCH (21:00)
[2019-06-08] MEDS: ATORVASTATIN 40 MG TABLET PO SCH (21:06)
[2019-06-08] MEDS: TRAZODONE 50MG TABLET PO SCH (21:06)
[2019-06-09 01:00] VITALS: BP 125/81
[2019-06-09] MEDS: LINEZOLID PMX 600MG/300ML 300 ML IV SCH ×2 (02:03→13:53)
[2019-06-09] MEDS ORDERED: PROMETHAZINE 12.5 MG SUPP PR ONE (02:30)
[2019-06-09] MEDS: ENOXAPARIN 40 MG/0.4 ML SQ SCH (04:13)
[2019-06-09] MEDS: SODIUM CHLORIDE 0.9% 1,000 ML IV SCH ×2 (05:00→12:18)
[2019-06-09 05:55] LABS: BASOPHILS # (AUTO) 0.03 x10^3/uL (0-0.1); BASOPHILS % (AUTO) 0 % (0-1); EOSINOPHILS # (AUTO) 0.33 x10^3/uL (0-0.4); EOSINOPHILS % (AUTO) 3 % (1-7); LYMPHOCYTES # (AUTO) 2.02 x10^3/uL (1-3.4); LYMPHOCYTES % (AUTO) 20 % (22-44); MD NO; MEAN CORPUSCULAR HEMOGLOBIN 27.5 pg (27.0-34.8); MEAN CORPUSCULAR HGB CONC 32.1 g/dL (32.4-35.8); MEAN CORPUSCULAR VOLUME 85.7 fL (80-100); MEAN PLATELET VOLUME 9.9 fL (7.4-10.4); MONOCYTES # (AUTO) 0.56 x10^3/uL (0.2-0.8); MONOCYTES % (AUTO) 5 % (2-9); NEUTROPHILS # (AUTO) 7.34 x10^3/uL (1.8-6.8); NEUTROPHILS % (AUTO) 71 % (42-75); PLATELET COUNT 207 x10^3/uL (130-400); RED BLOOD COUNT 4.23 x10^6/uL (3.82-5.3); RED CELL DISTRIBUTION WIDTH 16.5 % (9.6-15.2)
[2019-06-09 06:03] LABS: ANION GAP 9 mmol/L (5-15); CALCIUM 8.5 mg/dL (8.5-10.1); CHLORIDE 106 mmol/L (98-107); CREATININE 1.25 mg/dL (0.55-1.02)
[2019-06-09 06:56] LABS: HEMOGLOBIN A1C 10.4 % (4.2-6.3)
[2019-06-09 08:10] VITALS: BP 109/74
[2019-06-09] MEDS: INSULIN LISPRO 100 UNITS/ML, PEN SQ-INSULIN SCH ×4 (08:12→20:16)
[2019-06-09] MEDS: DIVALPROEX 500 MG TAB.ER.24H PO SCH (08:13)
[2019-06-09] MEDS: FLUOXETINE 10 MG CAP PO SCH (08:13)
[2019-06-09] MEDS: LOSARTAN 50MG TABLET PO SCH (08:13)
[2019-06-09] MEDS: FENOFIBRATE 145 MG TABLET PO SCH (08:13)
[2019-06-09] MEDS: GABAPENTIN 400 MG CAPSULE PO SCH ×3 (08:13→20:15)
[2019-06-09] MEDS ORDERED: ERENUMAB SQ SCH (09:00)
[2019-06-09] MEDS: INSULIN GLARGINE 100 UNITS/ML, PEN SQ-INSULIN SCH ×2 (11:31→20:16)
[2019-06-09] MEDS: BUTALB/APAP/CAFFEINE 50MG/325MG/40MG PO PRN ×2 (12:18→19:13)
[2019-06-09 15:36] VITALS: BP 109/70
[2019-06-09 16:45] LABS: MICROSCOPIC NOT IND
[2019-06-09 16:49] LABS: CULTURE INDICATED? NO
[2019-06-09] MEDS: ATORVASTATIN 40 MG TABLET PO SCH (20:15)
[2019-06-09 20:47] VITALS: BP 104/69
[2019-06-09] MEDS: TRAZODONE 50MG TABLET PO SCH (21:44)
[2019-06-10 01:00] VITALS: BP 113/77
[2019-06-10] MEDS: LINEZOLID PMX 600MG/300ML 300 ML IV SCH ×2 (01:40→15:12)
[2019-06-10] MEDS: ENOXAPARIN 40 MG/0.4 ML SQ SCH (05:58)
[2019-06-10] MEDS: INSULIN LISPRO 100 UNITS/ML, PEN SQ-INSULIN SCH ×4 (07:00→20:55)
[2019-06-10 07:30] VITALS: BP 143/76
[2019-06-10] MEDS: FLUOXETINE 10 MG CAP PO SCH (08:43)
[2019-06-10] MEDS: GABAPENTIN 400 MG CAPSULE PO SCH ×3 (08:43→20:56)
[2019-06-10] MEDS: FENOFIBRATE 145 MG TABLET PO SCH (08:43)
[2019-06-10] MEDS: BUTALB/APAP/CAFFEINE 50MG/325MG/40MG PO PRN ×2 (08:43→19:06)
[2019-06-10] MEDS: INSULIN GLARGINE 100 UNITS/ML, PEN SQ-INSULIN SCH ×2 (08:43→20:55)
[2019-06-10] MEDS: LOSARTAN 50MG TABLET PO SCH (08:43)
[2019-06-10] MEDS: DIVALPROEX 500 MG TAB.ER.24H PO SCH (08:44)
[2019-06-10 15:16] VITALS: BP 123/76
[2019-06-10 19:15] VITALS: BP 120/73
[2019-06-10] MEDS: TRAZODONE 50MG TABLET PO SCH (20:56)
[2019-06-10] MEDS: ATORVASTATIN 40 MG TABLET PO SCH (20:56)
[2019-06-11] VITALS: BP 164/74
[2019-06-11] MEDS: BUTALB/APAP/CAFFEINE 50MG/325MG/40MG PO PRN ×2 (00:10→20:58)
[2019-06-11] MEDS: LINEZOLID PMX 600MG/300ML 300 ML IV SCH ×2 (02:58→14:22)
[2019-06-11] MEDS: ENOXAPARIN 40 MG/0.4 ML SQ SCH (06:05)
[2019-06-11] MEDS: INSULIN LISPRO 100 UNITS/ML, PEN SQ-INSULIN SCH ×4 (08:00→20:58)
[2019-06-11] MEDS: INSULIN GLARGINE 100 UNITS/ML, PEN SQ-INSULIN SCH ×2 (08:52→20:58)
[2019-06-11] MEDS: FENOFIBRATE 145 MG TABLET PO SCH (08:56)
[2019-06-11] MEDS: GABAPENTIN 400 MG CAPSULE PO SCH ×3 (08:56→20:57)
[2019-06-11] MEDS: FLUOXETINE 10 MG CAP PO SCH (08:57)
[2019-06-11] MEDS: DIVALPROEX 500 MG TAB.ER.24H PO SCH (08:57)
[2019-06-11 09:05] VITALS: BP 116/76
[2019-06-11] MEDS: LOSARTAN 50MG TABLET PO SCH (09:33)
[2019-06-11 12:10] VITALS: BP 114/77
[2019-06-11] MEDS ORDERED: ALBUTEROL SULFATE 2.5 MG/3 ML NPPB PRN (14:30)
[2019-06-11 19:21] VITALS: BP 124/78
[2019-06-11] MEDS: ATORVASTATIN 40 MG TABLET PO SCH (20:57)
[2019-06-11] MEDS: TRAZODONE 50MG TABLET PO SCH (20:58)
[2019-06-12 00:13] VITALS: BP 124/83
[2019-06-12] MEDS: LINEZOLID PMX 600MG/300ML 300 ML IV SCH (02:11)
[2019-06-12] MEDS: ENOXAPARIN 40 MG/0.4 ML SQ SCH (05:12)
[2019-06-12] MEDS: DIVALPROEX 500 MG TAB.ER.24H PO SCH (08:27)
[2019-06-12] MEDS: GABAPENTIN 400 MG CAPSULE PO SCH (08:27)
[2019-06-12] MEDS: FENOFIBRATE 145 MG TABLET PO SCH (08:27)
[2019-06-12] MEDS: FLUOXETINE 10 MG CAP PO SCH (08:27)
[2019-06-12] MEDS: INSULIN LISPRO 100 UNITS/ML, PEN SQ-INSULIN SCH ×2 (08:28→11:45)
[2019-06-12] MEDS: INSULIN GLARGINE 100 UNITS/ML, PEN SQ-INSULIN SCH (08:28)
[2019-06-12] MEDS: LOSARTAN 50MG TABLET PO SCH (09:27)
[2019-06-12 09:29] VITALS: BP 142/82
[2019-06-12] MEDS ORDERED: LINE600T15 PO (10:49)
[2019-06-15] MEDS ORDERED: AIMOVIG SQ SCH (09:00)
== END 2019-06-12 13:00 | disposition home or self-care (01) | DRG 383 ==
LOC: ED 23:25 → EDIP 06-08 01:41 → UNDOADMIN 06-08 01:41 → EDIP 06-08 01:42 → 4EST 06-08 02:17
PROVIDERS: ADMIT Family Medicine; ATTEND Family Medicine
PROC: 0T9B70Z Drainage of Bladder with Drainage Device, Via Natural or Artificial Opening (ICD-10-PCS; principal; 2019-06-08)
DX: L03.311 Cellulitis of abdominal wall (principal); D68.0 Von Willebrand disease; E03.9 Hypothyroidism, unspecified; E11.9 Type 2 diabetes mellitus without complications; E65 Localized adiposity; E78.00 Pure hypercholesterolemia, unspecified; E78.5 Hyperlipidemia, unspecified; G43.909 Migraine, unspecified, not intractable, without status migrainosus; I10 Essential (primary) hypertension; M79.3 Panniculitis, unspecified; N20.0 Calculus of kidney; W18.39XA Other fall on same level, initial encounter; Y93.89 Activity, other specified; Y92.89 Other specified places as the place of occurrence of the external cause; Y99.8 Other external cause status; Z86.73 Personal history of transient ischemic attack (TIA), and cerebral infarction without residual deficits; Z90.710 Acquired absence of both cervix and uterus; Z88.6 Allergy status to analgesic agent; Z88.8 Allergy status to other drugs, medicaments and biological substances
CPT/HCPCS: 36415; 71045; 74176; 80048; 80053; 81001; 81003; 82962; 83036; 83605; 84145; 85025; 87040; G0378; J1650; J2020; J2550; J3480; J7613; J1815; J7030; J7040

== ENCOUNTER 2019-09-11 14:43 | Emergency (ER) | payer MEDICAID ==
[~2019-09-11] VITALS: Ht 170.2 cm; Wt 137.0 kg
[~2019-09-11 14:43] MED LIST changes: +FLUO10CA14 PO; -FLUO10CA7 PO; +INSU100V8 SQ; +LINE600T15 PO; +SIMV20TA19 PO; -SIMV20TA3 PO
--- NOTE | 2019-09-11 15:26 | NUR ---
PT REPORTS MECH GLF. PT STATES SHE SLIPPED IN THE BR AND HIT HER BACK THEN HER HEAD ON THE TOILET. -LOC. PT HAS BEEN HAVING INCREASE IN BACK PAIN AND ESPINO. PT STATES SHE HAS HX OF MIGRAINES BUT THE BACK PAIN IS INCREASED AND SHE WAS SENT FROM FOR A CT. PT TO BP/CONT PULSE OX
[2019-09-11] MEDS ORDERED: OXYcodone/APAP 5/325MG TABLET PO ONE (15:30)
[2019-09-11] MEDS ORDERED: ONDANSETRON ODT 4 MG PO ONE (15:30)
[2019-09-11] MEDS ORDERED: OXYcodone/APAP 5/325MG TABLET ONE ×2 (15:43→16:02)
[2019-09-11] MEDS ORDERED: ONDANSETRON ODT 4 MG ONE (15:43)
--- NOTE | 2019-09-11 15:46 | NUR ---
PT TO IMAGING AT THIS TIME
[2019-09-11 16:04] VITALS: BP 148/76
--- NOTE | 2019-09-11 16:05 | NUR ---
PT BACK FROM IMAGING, MEDICATED PER MAR
--- NOTE | 2019-09-11 17:26 | NUR ---
ALL IMAGING COMPLETED, PT PLACED FOR RECHECK. PT ABULATED TO BR WITH ASSIST TOLERATED WELL WITH SLOW STEPS, DISCUSSED POC.
== END 2019-09-11 18:32 | disposition home or self-care (01) ==
LOC: ED 15:49
DX: S23.3XXA Sprain of ligaments of thoracic spine, initial encounter (principal); S33.5XXA Sprain of ligaments of lumbar spine, initial encounter; S93.622A Sprain of tarsometatarsal ligament of left foot, initial encounter; S93.432A Sprain of tibiofibular ligament of left ankle, initial encounter; I10 Essential (primary) hypertension; E11.9 Type 2 diabetes mellitus without complications; E78.00 Pure hypercholesterolemia, unspecified; Z86.73 Personal history of transient ischemic attack (TIA), and cerebral infarction without residual deficits; Z90.710 Acquired absence of both cervix and uterus; W01.0XXA Fall on same level from slipping, tripping and stumbling without subsequent striking against object, initial encounter; Y93.89 Activity, other specified; Y92.091 Bathroom in other non-institutional residence as the place of occurrence of the external cause; Y99.8 Other external cause status
CPT/HCPCS: 70450; 72072; 72110; 73610; 73630; 99284; Q0162

== ENCOUNTER 2020-01-21 17:33 | Emergency (ER) | payer MEDICAID ==
[~2020-01-21] VITALS: Ht 170.2 cm; Wt 139.0 kg
--- NOTE | 2020-01-21 17:49 | NUR ---
PT IN RESTROOM AT THIS TIME. PT AT .
[2020-01-21 18:31] LABS: MICROSCOPIC INDICATED
[2020-01-21 18:42] LABS: BASOPHILS # (AUTO) 0.04 x10^3/uL (0-0.1); BASOPHILS % (AUTO) 0 % (0-1); EOSINOPHILS # (AUTO) 0.36 x10^3/uL (0-0.4); EOSINOPHILS % (AUTO) 4 % (1-7); LYMPHOCYTES % (AUTO) 29 % (22-44); MD NO; MEAN CORPUSCULAR HEMOGLOBIN 27.6 pg (27.0-34.8); MEAN CORPUSCULAR HGB CONC 32.8 g/dL (32.4-35.8); MEAN CORPUSCULAR VOLUME 84.2 fL (80-100); MEAN PLATELET VOLUME 9.6 fL (7.4-10.4); MONOCYTES # (AUTO) 0.56 x10^3/uL (0.2-0.8); MONOCYTES % (AUTO) 6 % (2-9); NEUTROPHILS # (AUTO) 6.04 x10^3/uL (1.8-6.8); NEUTROPHILS % (AUTO) 62 % (42-75); PLATELET COUNT 285 x10^3/uL (130-400); RED BLOOD COUNT 4.84 x10^6/uL (3.82-5.3); RED CELL DISTRIBUTION WIDTH 16.3 % (9.6-15.2)
[2020-01-21 18:54] LABS: ALBUMIN 3.3 g/dL (3.4-5.0); ANION GAP 8 mmol/L (5-15); CALCIUM 9.5 mg/dL (8.5-10.1); CHLORIDE 103 mmol/L (98-107); CREATININE 1.09 mg/dL (0.55-1.02)
--- NOTE | 2020-01-21 19:05 | NUR ---
REPORT RECEIVED FROM ANALI GONZALES.
--- NOTE | 2020-01-21 19:31 | NUR ---
pt resting in [facility]. pt's aox4. resps even and unlabored. bp/spo2 monitors in place. call light within reach.
[2020-01-21 20:10] VITALS: BP 122/84
--- NOTE | 2020-01-21 20:11 | NUR ---
pa at bedside to explain all results at this time.
--- NOTE | 2020-01-21 20:55 | NUR ---
Patient given discharge instructions and they have confirmed that they understand the instructions. Patient ambulatory with steady gait.
== END 2020-01-21 20:56 | disposition home or self-care (01) ==
LOC: ED 18:26
DX: R10.9 Unspecified abdominal pain (principal); R30.0 Dysuria; E11.9 Type 2 diabetes mellitus without complications; I10 Essential (primary) hypertension; G89.29 Other chronic pain; G43.909 Migraine, unspecified, not intractable, without status migrainosus; E78.00 Pure hypercholesterolemia, unspecified; Z86.73 Personal history of transient ischemic attack (TIA), and cerebral infarction without residual deficits; Z90.710 Acquired absence of both cervix and uterus
CPT/HCPCS: 36415; 70450; 80048; 81001; 82040; 85025; 87077; 87086; 87186; 99285

== ENCOUNTER 2020-06-24 15:42 | Inpatient (IN) | payer MEDICAID ==
[~2020-06-24] VITALS: Ht 170.2 cm; Wt 142.0 kg
[~2020-06-24 15:42] MED LIST changes: -FLUO10CA14 PO; +FLUO10CA15 PO
--- NOTE | 2020-06-24 15:50 | NUR ---
BIB AMBULANCE FROM HOME S/P GLF AT 0900 THIS MORNING. PT REPORTS "INCREASING PAIN IN MY LEFT ANKLE." DENIES LOC OR HITTING HEAD WITH FALL. NO SWELLING OR DEFORMITY NOTED, CMS INTACT. PEDAL PULSE NORMAL AND STRONG. CAP REFILL BRISK, SKIN PWD. EMS ESTABLISHED 20G IV RAC, ADMINISTERED 200MCG FENTANYL AND 4MG ZOFRAN [employer]IN[employer] QUALITY ASSURANCE SPECIALIST TO ER. PT FSBS 407 ON SCENE. PT WITH HX DIABETES, STATES "TOOK INSULIN THIS MORNING." ELINA MCCORD AT BEDSIDE FOR EVALUATION, AWAITING ORDERS. A&OX4. CONT PULSE OX, BP MONITORS APPLIED. VSS. CALL LIGHT IN REACH. FALL PRECUATIONS IN PLACE. SPOUSE AT BEDSIDE. LLE ELEVATED, ICE PACK APPLIED.
--- NOTE | 2020-06-24 16:08 | NUR ---
RAD AT BEDSIDE
--- NOTE | 2020-06-24 16:15 | NUR ---
PT DESATING TO 84% ON RA S/P 200 MCG ON FENTANYL FROM EMS STEEL BUFFER TO ER. DISCUSSED WITH ELINA MCCORD,AWARE, TO HOLD PERCOCET AT THIS TIME PER PROVIDER. PT PLACED ON 2L NC O2, PULSE OX 97%. PT UPDATED ON POC, VERBALIZED UNDERSTANDING. SPOUSE REMAINS AT BEDSIDE. LLE ELEVATED WITH ICE PACK, CMS INTACT. AWAITING RAD RESULTS.
[2020-06-24] MEDS: OXYcodone/APAP 5/325MG TABLET PO ONE ×2 (16:17→19:19)
--- NOTE | 2020-06-24 16:40 | NUR ---
DR. CASTREJON AT BEDSIDE FOR RECHECK
--- NOTE | 2020-06-24 17:21 | NUR ---
ELINA MCCORD AT BEDSIDE DISCUSSING POC WITH PT AND SPOUSE. ED EMT TO PLACE LONG POSTERIOR LEG SPLINT PER PA. ELINA MCCORD ORDERING WHEELCHAIR FOR PT FOR HOME USE DUE TO FRACTURE AND INABILTY TO BEAR WEIGHT ON LLE. THROUGHPUT RN ELIZABETH WORKING ON ARRANGEMENTS FOR WHEELCHAIR DELIVERY FOR PT. CALL LIGHT IN REACH. FALL PRECAUTIONS IN PLACE. DISCUSSED EMS FSBS WITH ELINA MCCORD AND DR. CASTREJON, BOTH AWARE, NO FSBS CHECK PER ERP, NO ADDITIONAL ORDERS RECEIVED. VSS. CALL LIGHT IN REACH. FALL PRECUATIONS IN PLACE.
--- NOTE | 2020-06-24 17:45 | NUR ---
ED CAR MA AND ELVIS AT BEDSIDE FOR SPLINT PLACEMENT. CMS INTACT
--- NOTE | 2020-06-24 17:52 | NUR ---
WAITING FOR CALL BACK FROM [facility]. IF NO CALL BACK BY [phone] CALL AGAIN
--- NOTE | 2020-06-24 18:12 | NUR ---
PT REQUESTING PAIN MEDICATION AND WATER, TO DISCUSS WITH ELINA MCCORD AND DR. CASTREJON. PT PULSE OX 92% RA AT THIS TIME. VSS. RATES PAIN 7-8/10 LLE, LLE ELEVATED WITH ICE PACK IN PLACE. SPLINT IN PLACE. CMS INTACT. SPOUSE AT BEDSIDE. CONTINUE AWAITING WHEELCHAIR ARRANGEMENTS. CALL LIGHT IN REACH. FALL PRECAUTIONS IN PLACE
--- NOTE | 2020-06-24 18:41 | NUR ---
2ND CALL TO [facility]. IF NO CALL BACK BY [phone] CALL AGAIN
--- NOTE | 2020-06-24 18:46 | NUR ---
PULSE OX FLUCTUATING BETWEEN 88-92% ON RA. PT STATES "THE PAIN, IT HURTS, I MIGHT BE HOLDING MY BREATH." DISCUSSED PAIN WITH DR. CASTREJON, AWARE, PER DR. CASTREJON, "OKAY TO MEDICATE PT WITH PERCOCET FOR PAIN,THINK IT WILL HELP HER, WILL ALSO ORDER NEB TREATMENT FOR PT WELL." OKAY PER MD FOR PT TO HAVE PO FLUIDS PER PT REQUEST.
--- NOTE | 2020-06-24 18:56 | NUR ---
REPORT AND TRANSFER OF CARE TO ANKIT GONZALES AT THIS TIME.
[2020-06-24] MEDS ORDERED: ALBUTEROL/IPRATROPIUM 2.5MG/0.5MG, 3 ML NPPB ONE (19:00)
[2020-06-24] MEDS ORDERED: ALBUTEROL/IPRATROPIUM 2.5MG/0.5MG, 3 ML ONE (19:15)
[2020-06-24] MEDS ORDERED: OXYcodone/APAP 5/325MG TABLET ONE (19:15)
--- NOTE | 2020-06-24 20:50 | NUR ---
pt medicated for pain per emar. pt provided breathing treatment. pt helped on and off of a bedpan for urination.
--- NOTE | 2020-06-24 21:53 | NUR ---
STILL WAITING FOR WHEEL CHAIR. LAWRENCE IN THROUGHPUT STATES SHE HAS CALLED FOR WHEELCHAIR ABOUT 5-6 TIMES.
--- NOTE | 2020-06-24 22:37 | NUR ---
TP: SPOKE WITH [facility]. DME FORM FAXED AGAIN. PER DISPATCH WHEELCHAIR WILL MOST LIKELY NOT BE DELIVERED UNTIL AM. SECONDARY SPANISH TEACHER AWARE.
[2020-06-24] MEDS ORDERED: ATORVASTATIN 40 MG TABLET PO SCH (23:30)
[2020-06-24] MEDS ORDERED: TRAZODONE 50MG TABLET PO SCH (23:30)
[2020-06-24] MEDS ORDERED: AMLODIPINE 5 MG TABLET PO ONE (23:30)
--- NOTE | 2020-06-24 23:30 | NUR ---
dr gottlieb states to keep pt in ER until the wheelchair comes which will likely be in AM. night time med orders recieved. I will provide pt with a meal and night meds and hospital bed for the night.
[2020-06-25] MEDS ORDERED: ATORVASTATIN 40 MG TABLET ONE (00:23)
[2020-06-25] MEDS ORDERED: GABAPENTIN 400 MG CAPSULE ONE ×2 (00:23→09:52)
[2020-06-25] MEDS ORDERED: TRAZODONE 50MG TABLET ONE (00:23)
[2020-06-25] MEDS ORDERED: DIVALPROEX 500 MG TAB.ER.24H ONE (00:23)
[2020-06-25] MEDS: GABAPENTIN 400 MG CAPSULE PO SCH ×4 (00:53→22:12)
--- NOTE | 2020-06-25 01:24 | NUR ---
PTS FSBG CHECKED AND IS 177. GETTING PT FOOD BEFORE ADMINISTERING MEDICATION.
[2020-06-25] MEDS ORDERED: INSULIN SINGLE DOSE, ER ONE ×2 (02:02→12:07)
[2020-06-25] MEDS: INSULIN REGULAR 100 UNITS/ML, 3ML VIAL SQ-INSULIN SCH ×3 (02:05→12:10)
[2020-06-25] MEDS: INSULIN GLARGINE 100 UNITS/ML, PEN SQ-INSULIN SCH ×2 (02:05→22:11)
--- NOTE | 2020-06-25 02:08 | NUR ---
PT MEDICATED. VSS. PT TO BE MOVED TO HOSPITAL BED WHRN IT ARRIVES. CALL LIGHT IN REACH
--- NOTE | 2020-06-25 02:11 | NUR ---
REPORT TO JANET PARKER
--- NOTE | 2020-06-25 03:38 | NUR ---
pt moved to hospital bed. pt sleeping and has no needs at this time. call light in reach
[2020-06-25] MEDS ORDERED: HYDROcodone/APAP 5/325 TABLET ONE ×2 (05:52→15:28)
--- NOTE | 2020-06-25 05:56 | NUR ---
pt medicated for pain. pt has no other needs at this time.
[2020-06-25] MEDS ORDERED: HYDROcodone/APAP 5/325 TABLET PO ONE (06:00)
--- NOTE | 2020-06-25 06:51 | NUR ---
REPORT FROM KEITH GONZALES, PT RESTING IN [facility]. AWAITING WHEELCHAIR FOR DC
--- NOTE | 2020-06-25 07:38 | NUR ---
Pt placed on bedpan, pt having trouble getting on bedpan, asked pt if she would be ok at home with ADL's, pt states she has multiple caregivers at home to help. Pt voided approx 800cc's
--- NOTE | 2020-06-25 08:42 | NUR ---
Pt would like to take medications at home. Throughput RN to call for wheelchair at 9am and pt to be discharged home.
[2020-06-25] MEDS ORDERED: LOSARTAN 50MG TABLET PO SCH (09:00)
[2020-06-25] MEDS: FUROSEMIDE 20 MG TABLET PO SCH (09:00)
--- NOTE | 2020-06-25 09:12 | NUR ---
Throughput RN to call back for wheelchair at 1100 per DME company. Pt requesting home medications now.
[2020-06-25] MEDS ORDERED: FLUOXETINE 10 MG CAP ONE (09:51)
--- NOTE | 2020-06-25 11:03 | NUR ---
Pt requesting to get up with in wheelchair to bathroom as is concerned about ADL's at home. Unable to find bariatric wheelchair at this time. Requested pt be on a bedpan, pt having a lot of difficulty rolling over and pulling down pants herself. Discussed with pt and how able pt will be able to care for selt and have help at home, per he works nights and sleeping during the day. Pt states her daughter lives next door but works all day also. MD freed, after discussion with pt it is decided admission will be best for pt at this time. Throughput RN notified
[2020-06-25] MEDS: FLUOXETINE 10 MG CAP PO SCH (11:59)
[2020-06-25] MEDS: FENOFIBRATE 145 MG TABLET PO SCH (11:59)
[2020-06-25] MEDS: HYDROCHLOROTHIAZIDE 12.5 MG CAPSULE PO SCH (12:00)
--- NOTE | 2020-06-25 12:02 | NUR ---
PT REFUSING HOSPITAL LUNCH TRAY, STATES BROUGHT HER LIGIA IN THE BOX. BG [id number], PT OK TO RECIVE INSULIN AT THIS TIME.
[2020-06-25] MEDS ORDERED: GLUCAGON 1 MG IM PRN (12:30)
[2020-06-25] MEDS ORDERED: ONDANSETRON 2MG/ML, 2ML IVPush PRN (12:30)
[2020-06-25] MEDS ORDERED: TRAZODONE 50MG TABLET PO PRN (12:30)
[2020-06-25] MEDS ORDERED: ONDANSETRON ODT 4 MG PO PRN (12:30)
[2020-06-25] MEDS ORDERED: ENALAPRILAT 1.25 MG/ML, 2ML IVPush PRN (12:30)
[2020-06-25] MEDS ORDERED: BISACODYL 10 MG SUPP PR PRN (12:30)
[2020-06-25] MEDS ORDERED: hydrALAzine 20 MG/ML, 1ML IVPush PRN (12:30)
[2020-06-25] MEDS ORDERED: DOCUSATE 100 MG CAPSULE PO PRN (12:30)
[2020-06-25] MEDS ORDERED: DEXTROSE 50%, 50ML SYRINGE IVPush PRN (12:30)
[2020-06-25] MEDS ORDERED: ACETAMINOPHEN 325 MG TABLET PO PRN (12:30)
[2020-06-25] MEDS: ENOXAPARIN 40 MG/0.4 ML SQ SCH (12:30)
[2020-06-25] MEDS ORDERED: DEXTROSE 4 GM TAB.CHEW PO PRN (12:30)
--- NOTE | 2020-06-25 14:02 | NUR ---
pt rseting in hospital bed, awaitng bed assignment
[2020-06-25] MEDS ORDERED: PROMETHAZINE 25MG TABLET PO PRN (15:00)
[2020-06-25] MEDS ORDERED: DIPHENHYDRAMINE 25 MG CAPSULE PO ONE (15:00)
[2020-06-25] MEDS ORDERED: BUTALB/APAP/CAFFEINE 50MG/325MG/40MG PO PRN (15:00)
[2020-06-25] MEDS ORDERED: ONDANSETRON 2MG/ML, 2ML ONE (15:28)
[2020-06-25] MEDS: HYDROcodone/APAP 5/325 TABLET PO PRN ×2 (15:30→21:10)
[2020-06-25 16:21] VITALS: BP 134/84
[2020-06-25] MEDS: INSULIN LISPRO 100 UNITS/ML, PEN SQ-INSULIN SCH ×3 (18:05→22:11)
[2020-06-25 18:37] VITALS: BP 105/64
[2020-06-25] MEDS ORDERED: DIVALPROEX 500 MG TAB.ER.24H PO SCH (21:00)
[2020-06-25] MEDS: DIVALPROEX 500 MG TAB.ER.24H PO SCH (22:11)
[2020-06-25] MEDS: SODIUM CHLORIDE FLUSH 10ML SYR IVF SCH (22:12)
[2020-06-25] MEDS: ATORVASTATIN 40 MG TABLET PO SCH (22:12)
[2020-06-26 00:43] VITALS: BP 114/74
[2020-06-26] MEDS: HYDROcodone/APAP 5/325 TABLET PO PRN ×5 (01:25→21:32)
[2020-06-26 04:35] LABS: BASOPHILS % (AUTO) 1 % (0-1); EOSINOPHILS % (AUTO) 4 % (1-7); LYMPHOCYTES % (AUTO) 28 % (22-44); MEAN CORPUSCULAR HEMOGLOBIN 27.5 pg (27.0-34.8); MEAN CORPUSCULAR HGB CONC 32.2 g/dL (32.4-35.8); MEAN PLATELET VOLUME 8.9 fL (7.4-10.4); MONOCYTES % (AUTO) 10 % (2-9); NEUTROPHILS % (AUTO) 58 % (42-75); PLATELET COUNT 221 x10^3/uL (130-400); RED BLOOD COUNT 4.62 x10^6/uL (3.82-5.3); RED CELL DISTRIBUTION WIDTH 15.8 % (9.6-15.2)
[2020-06-26 04:46] LABS: ANION GAP 4 mmol/L (5-15); CALCIUM 9.1 mg/dL (8.5-10.1); CHLORIDE 105 mmol/L (98-107); CREATININE 1.16 mg/dL (0.55-1.02)
[2020-06-26 05:15] LABS: MD NO
[2020-06-26] MEDS: INSULIN GLARGINE 100 UNITS/ML, PEN SQ-INSULIN SCH ×2 (08:48→20:50)
[2020-06-26] MEDS: INSULIN LISPRO 100 UNITS/ML, PEN SQ-INSULIN SCH ×7 (08:49→20:51)
[2020-06-26] MEDS: FENOFIBRATE 145 MG TABLET PO SCH (08:50)
[2020-06-26] MEDS: LOSARTAN 100 MG TAB PO SCH (08:50)
[2020-06-26] MEDS: GABAPENTIN 400 MG CAPSULE PO SCH ×3 (08:50→20:34)
[2020-06-26] MEDS: FLUOXETINE 10 MG CAP PO SCH (08:51)
[2020-06-26] MEDS: HYDROCHLOROTHIAZIDE 12.5 MG CAPSULE PO SCH (08:51)
[2020-06-26] MEDS: FUROSEMIDE 20 MG TABLET PO SCH (08:51)
[2020-06-26] MEDS: SODIUM CHLORIDE FLUSH 10ML SYR IVF SCH ×2 (08:53→20:36)
[2020-06-26] MEDS: SENNA/DOCUSATE TABLET PO SCH (08:53)
[2020-06-26 08:58] VITALS: BP 124/84
[2020-06-26] MEDS ORDERED: FLUOXETINE 10 MG CAP PO SCH (09:00)
[2020-06-26] MEDS ORDERED: AMLODIPINE 5 MG TABLET PO ONE (09:00)
[2020-06-26] MEDS ORDERED: TEMPLATE NON-FORMULARY MED. (Fenofibrate** 160 MG) PO SCH (09:00)
[2020-06-26] MEDS: ENOXAPARIN 40 MG/0.4 ML SQ SCH (11:50)
[2020-06-26 15:43] VITALS: BP 105/64
[2020-06-26 18:47] VITALS: BP 113/61
[2020-06-26] MEDS: ATORVASTATIN 40 MG TABLET PO SCH (20:34)
[2020-06-26] MEDS: DIVALPROEX 500 MG TAB.ER.24H PO SCH (20:35)
[2020-06-26] MEDS: IBUPROFEN 600 MG TABLET PO PRN (21:32)
[2020-06-27 01:31] VITALS: BP 139/85
[2020-06-27] MEDS: HYDROcodone/APAP 5/325 TABLET PO PRN ×4 (02:39→21:12)
[2020-06-27 06:08] LABS: CHLORIDE 103 mmol/L (98-107)
[2020-06-27 06:16] LABS: ANION GAP 3 mmol/L (5-15); CREATININE 1.28 mg/dL (0.55-1.02)
[2020-06-27] MEDS: INSULIN LISPRO 100 UNITS/ML, PEN SQ-INSULIN SCH ×7 (06:51→21:11)
[2020-06-27 07:09] VITALS: BP 111/65
[2020-06-27] MEDS: SODIUM CHLORIDE FLUSH 10ML SYR IVF SCH ×2 (07:24→21:11)
[2020-06-27] MEDS: IBUPROFEN 600 MG TABLET PO PRN (08:44)
[2020-06-27] MEDS: FLUOXETINE 10 MG CAP PO SCH (08:44)
[2020-06-27] MEDS: GABAPENTIN 400 MG CAPSULE PO SCH ×3 (08:44→21:12)
[2020-06-27] MEDS: LOSARTAN 100 MG TAB PO SCH (08:44)
[2020-06-27] MEDS: FUROSEMIDE 20 MG TABLET PO SCH (08:44)
[2020-06-27] MEDS: HYDROCHLOROTHIAZIDE 12.5 MG CAPSULE PO SCH (08:44)
[2020-06-27] MEDS: FENOFIBRATE 145 MG TABLET PO SCH (08:44)
[2020-06-27] MEDS: SENNA/DOCUSATE TABLET PO SCH (08:46)
[2020-06-27] MEDS: INSULIN GLARGINE 100 UNITS/ML, PEN SQ-INSULIN SCH ×2 (09:00→21:12)
[2020-06-27] MEDS: ENOXAPARIN 40 MG/0.4 ML SQ SCH (12:34)
[2020-06-27 12:58] VITALS: BP 111/53
[2020-06-27 18:41] VITALS: BP 93/57
[2020-06-27] MEDS: ATORVASTATIN 40 MG TABLET PO SCH (21:12)
[2020-06-27] MEDS: DIVALPROEX 500 MG TAB.ER.24H PO SCH (21:12)
[2020-06-28] MEDS: ENOXAPARIN 30 MG/0.3 ML SQ SCH ×2 (00:46→12:39)
[2020-06-28 00:49] VITALS: BP 101/55
[2020-06-28] MEDS: HYDROcodone/APAP 5/325 TABLET PO PRN ×4 (05:41→20:30)
[2020-06-28] MEDS: INSULIN LISPRO 100 UNITS/ML, PEN SQ-INSULIN SCH ×8 (07:00→21:04)
[2020-06-28 07:25] VITALS: BP 108/67
[2020-06-28] MEDS: SODIUM CHLORIDE FLUSH 10ML SYR IVF SCH ×2 (07:53→20:30)
[2020-06-28] MEDS: GABAPENTIN 400 MG CAPSULE PO SCH ×3 (07:54→20:30)
[2020-06-28] MEDS: HYDROCHLOROTHIAZIDE 12.5 MG CAPSULE PO SCH (07:54)
[2020-06-28] MEDS: FLUOXETINE 10 MG CAP PO SCH (07:54)
[2020-06-28] MEDS: SENNA/DOCUSATE TABLET PO SCH (07:54)
[2020-06-28] MEDS: INSULIN GLARGINE 100 UNITS/ML, PEN SQ-INSULIN SCH ×2 (07:56→21:04)
[2020-06-28] MEDS: FUROSEMIDE 20 MG TABLET PO SCH (07:56)
[2020-06-28] MEDS: LOSARTAN 100 MG TAB PO SCH (07:56)
[2020-06-28] MEDS: FENOFIBRATE 145 MG TABLET PO SCH (07:56)
[2020-06-28 14:02] VITALS: BP 92/59
[2020-06-28 18:26] VITALS: BP 124/71
[2020-06-28] MEDS: ATORVASTATIN 40 MG TABLET PO SCH (20:30)
[2020-06-28] MEDS: DIVALPROEX 500 MG TAB.ER.24H PO SCH (20:30)
[2020-06-29] MEDS: ENOXAPARIN 30 MG/0.3 ML SQ SCH ×2 (00:42→12:20)
[2020-06-29 00:43] VITALS: BP 134/86
[2020-06-29] MEDS: HYDROcodone/APAP 5/325 TABLET PO PRN ×5 (00:43→21:21)
[2020-06-29] MEDS: INSULIN LISPRO 100 UNITS/ML, PEN SQ-INSULIN SCH ×7 (07:00→21:00)
[2020-06-29 07:26] VITALS: BP 135/73
[2020-06-29] MEDS: HYDROCHLOROTHIAZIDE 12.5 MG CAPSULE PO SCH (08:46)
[2020-06-29] MEDS: FENOFIBRATE 145 MG TABLET PO SCH (08:46)
[2020-06-29] MEDS: LOSARTAN 100 MG TAB PO SCH (08:46)
[2020-06-29] MEDS: FUROSEMIDE 20 MG TABLET PO SCH (08:46)
[2020-06-29] MEDS: FLUOXETINE 10 MG CAP PO SCH (08:46)
[2020-06-29] MEDS: GABAPENTIN 400 MG CAPSULE PO SCH ×3 (08:46→21:20)
[2020-06-29] MEDS: INSULIN GLARGINE 100 UNITS/ML, PEN SQ-INSULIN SCH ×2 (08:47→21:44)
[2020-06-29] MEDS: SENNA/DOCUSATE TABLET PO SCH (08:47)
[2020-06-29] MEDS: SODIUM CHLORIDE FLUSH 10ML SYR IVF SCH ×2 (08:48→21:21)
[2020-06-29 13:00] VITALS: BP 105/72
[2020-06-29 19:12] VITALS: BP 101/51
[2020-06-29] MEDS: ATORVASTATIN 40 MG TABLET PO SCH (21:20)
[2020-06-29] MEDS: DIVALPROEX 500 MG TAB.ER.24H PO SCH (21:20)
[2020-06-30] MEDS: ENOXAPARIN 30 MG/0.3 ML SQ SCH ×2 (00:49→13:22)
[2020-06-30 01:14] VITALS: BP 115/61
[2020-06-30] MEDS: HYDROcodone/APAP 5/325 TABLET PO PRN ×3 (06:34→17:59)
[2020-06-30] MEDS: INSULIN LISPRO 100 UNITS/ML, PEN SQ-INSULIN SCH ×7 (07:00→20:55)
[2020-06-30 07:10] VITALS: BP 113/71
[2020-06-30] MEDS: INSULIN GLARGINE 100 UNITS/ML, PEN SQ-INSULIN SCH ×2 (07:58→20:57)
[2020-06-30] MEDS: FLUOXETINE 10 MG CAP PO SCH (08:00)
[2020-06-30] MEDS: HYDROCHLOROTHIAZIDE 12.5 MG CAPSULE PO SCH (08:00)
[2020-06-30] MEDS: FENOFIBRATE 145 MG TABLET PO SCH (08:00)
[2020-06-30] MEDS: FUROSEMIDE 20 MG TABLET PO SCH (08:01)
[2020-06-30] MEDS: LOSARTAN 100 MG TAB PO SCH (08:01)
[2020-06-30] MEDS: GABAPENTIN 400 MG CAPSULE PO SCH ×3 (08:01→20:56)
[2020-06-30] MEDS: SODIUM CHLORIDE FLUSH 10ML SYR IVF SCH ×2 (09:00→20:56)
[2020-06-30] MEDS: SENNA/DOCUSATE TABLET PO SCH (09:00)
[2020-06-30 12:59] VITALS: BP 102/69
[2020-06-30 19:52] VITALS: BP 106/51
[2020-06-30] MEDS: ATORVASTATIN 40 MG TABLET PO SCH (20:56)
[2020-06-30] MEDS: DIVALPROEX 500 MG TAB.ER.24H PO SCH (20:56)
[2020-07-01] MEDS: ENOXAPARIN 30 MG/0.3 ML SQ SCH ×2 (00:30→12:17)
[2020-07-01 01:06] VITALS: BP 128/62
[2020-07-01] MEDS: HYDROcodone/APAP 5/325 TABLET PO PRN ×3 (03:27→20:58)
[2020-07-01 05:58] LABS: CREATININE 0.93 mg/dL (0.55-1.02)
[2020-07-01 07:44] VITALS: BP 127/72
[2020-07-01] MEDS: INSULIN GLARGINE 100 UNITS/ML, PEN SQ-INSULIN SCH ×2 (08:22→20:57)
[2020-07-01] MEDS: INSULIN LISPRO 100 UNITS/ML, PEN SQ-INSULIN SCH ×7 (08:23→20:57)
[2020-07-01] MEDS: LOSARTAN 100 MG TAB PO SCH (08:23)
[2020-07-01] MEDS: HYDROCHLOROTHIAZIDE 12.5 MG CAPSULE PO SCH (08:24)
[2020-07-01] MEDS: FLUOXETINE 10 MG CAP PO SCH (08:24)
[2020-07-01] MEDS: FUROSEMIDE 20 MG TABLET PO SCH (08:24)
[2020-07-01] MEDS: GABAPENTIN 400 MG CAPSULE PO SCH ×3 (08:25→20:58)
[2020-07-01] MEDS: FENOFIBRATE 145 MG TABLET PO SCH (08:25)
[2020-07-01] MEDS: SENNA/DOCUSATE TABLET PO SCH (08:25)
[2020-07-01] MEDS: SODIUM CHLORIDE FLUSH 10ML SYR IVF SCH ×2 (08:26→20:58)
[2020-07-01 14:07] VITALS: BP 101/58
[2020-07-01 18:23] VITALS: BP 115/76
[2020-07-01] MEDS: DIVALPROEX 500 MG TAB.ER.24H PO SCH (20:57)
[2020-07-01] MEDS: ATORVASTATIN 40 MG TABLET PO SCH (20:58)
[2020-07-01 21:05] VITALS: BP 102/72
[2020-07-02] MEDS: ENOXAPARIN 30 MG/0.3 ML SQ SCH ×2 (00:44→11:50)
[2020-07-02 00:47] VITALS: BP 118/72
[2020-07-02] MEDS: HYDROcodone/APAP 5/325 TABLET PO PRN ×2 (06:18→16:11)
[2020-07-02 07:45] VITALS: BP 166/76
[2020-07-02] MEDS: HYDROCHLOROTHIAZIDE 12.5 MG CAPSULE PO SCH (08:46)
[2020-07-02] MEDS: FENOFIBRATE 145 MG TABLET PO SCH (08:46)
[2020-07-02] MEDS: FLUOXETINE 10 MG CAP PO SCH (08:46)
[2020-07-02] MEDS: GABAPENTIN 400 MG CAPSULE PO SCH ×2 (08:46→16:26)
[2020-07-02] MEDS: LOSARTAN 100 MG TAB PO SCH (08:46)
[2020-07-02] MEDS: SENNA/DOCUSATE TABLET PO SCH (08:47)
[2020-07-02] MEDS: INSULIN GLARGINE 100 UNITS/ML, PEN SQ-INSULIN SCH (08:47)
[2020-07-02] MEDS: FUROSEMIDE 20 MG TABLET PO SCH (08:47)
[2020-07-02] MEDS: INSULIN LISPRO 100 UNITS/ML, PEN SQ-INSULIN SCH ×6 (08:48→16:27)
[2020-07-02] MEDS: SODIUM CHLORIDE FLUSH 10ML SYR IVF SCH (08:48)
[2020-07-02 08:56] VITALS: BP 128/69
[2020-07-02 13:19] VITALS: BP 103/54
[2020-07-02] MEDS ORDERED: HYDR-3240 PO (16:00)
[2020-07-02 16:13] VITALS: BP 105/71
[2020-07-02] MEDS ORDERED: TRAZODONE 50MG TABLET PO SCH (21:00)
== END 2020-07-02 16:27 | DRG 342 ==
LOC: ED 16:10 → EDIP 06-25 12:58 → INTOOBSV 06-25 12:58 → OBSVTOIN 06-25 12:58 → 4NE 06-25 16:16
PROVIDERS: ADMIT Family Medicine; ATTEND Family Medicine
DX: S82.402A Unspecified fracture of shaft of left fibula, initial encounter for closed fracture (principal); N17.9 Acute kidney failure, unspecified; S92.252A Displaced fracture of navicular [scaphoid] of left foot, initial encounter for closed fracture; Y93.01 Activity, walking, marching and hiking; Z20.822 Contact with and (suspected) exposure to COVID-19; E03.9 Hypothyroidism, unspecified; E66.9 Obesity, unspecified; G43.009 Migraine without aura, not intractable, without status migrainosus; N18.9 Chronic kidney disease, unspecified; I12.9 Hypertensive chronic kidney disease with stage 1 through stage 4 chronic kidney disease, or unspecified chronic kidney disease; E11.22 Type 2 diabetes mellitus with diabetic chronic kidney disease; W18.39XA Other fall on same level, initial encounter; Y93.89 Activity, other specified; Z79.4 Long term (current) use of insulin; Z86.14 Personal history of Methicillin resistant Staphylococcus aureus infection; Z79.899 Other long term (current) drug therapy; I69.954 Hemiplegia and hemiparesis following unspecified cerebrovascular disease affecting left non-dominant side; Y99.8 Other external cause status; Y92.009 Unspecified place in unspecified non-institutional (private) residence as the place of occurrence of the external cause
CPT/HCPCS: 36415; 80048; 82565; 82962; 83036; 85025; 99285; G0378; J1650; J2405; J1815; Q0163

== ENCOUNTER 2020-11-18 19:18 | Emergency (ER) | payer MEDICAID ==
[~2020-11-18] VITALS: Ht 170.2 cm; Wt 138.0 kg
[~2020-11-18 19:18] MED LIST changes: -ASPI-515 PO; +ASPI-963 PO; -CYCL-259 PO; +CYCL10TA2 PO; +HYDR-2214 PO; -HYDR-3240 PO; +SULF-23 PO; -SULF1TAB24 PO
--- NOTE | 2020-11-18 19:54 | NUR ---
C/O MIGRAINE ESPINO X1 DAY. PT ALSO C/O LEFT LOWER TOOTH PAIN X3 DAYS.
--- NOTE | 2020-11-18 20:23 | NUR ---
DR. CANCINO AT BEDSIDE FOR EVAL.
[2020-11-18] MEDS ORDERED: DIPHENHYDRAMINE 50 MG/ML, 1ML IVPush ONE (20:30)
[2020-11-18] MEDS ORDERED: ACETAMINOPHEN 500 MG TABLET PO ONE (20:30)
[2020-11-18] MEDS ORDERED: PROCHLORPERAZINE 5 MG/ML, 2ML IVPush ONE (20:30)
[2020-11-18] MEDS ORDERED: PROCHLORPERAZINE 5 MG/ML, 2ML ONE (20:33)
[2020-11-18] MEDS ORDERED: DIPHENHYDRAMINE 50 MG/ML, 1ML ONE (20:33)
[2020-11-18] MEDS ORDERED: ACETAMINOPHEN 500 MG TABLET ONE (20:34)
--- NOTE | 2020-11-18 20:56 | NUR ---
PT OFF UNIT FOR CT.
[2020-11-18 20:58] LABS: ALANINE AMINOTRANSFERASE 38 U/L (12-78); ALBUMIN 3.4 g/dL (3.4-5.0); ANION GAP 7 mmol/L (5-15); CALCIUM 9.2 mg/dL (8.5-10.1); CHLORIDE 98 mmol/L (98-107); INTERNATIONAL NORMALIZED RATIO 1.02 (0.93-1.1); PROTHROMBIN TIME 10.9 Seconds (9.6-11.5)
[2020-11-18 21:00] LABS: ALKALINE PHOSPHATASE 102 U/L (45-117); BILIRUBIN,TOTAL 0.3 mg/dL (0.2-1.0); TOTAL PROTEIN 7.8 g/dL (6.4-8.2)
[2020-11-18 21:01] LABS: BASOPHILS % (AUTO) 1 % (0-1); EOSINOPHILS % (AUTO) 3 % (1-7); LYMPHOCYTES % (AUTO) 28 % (22-44); MEAN CORPUSCULAR HEMOGLOBIN 27.7 pg (27.0-34.8); MEAN PLATELET VOLUME 8.8 fL (7.4-10.4); MONOCYTES % (AUTO) 8 % (2-9); NEUTROPHILS % (AUTO) 61 % (42-75); PLATELET COUNT 277 x10^3/uL (130-400); RED BLOOD COUNT 5.13 x10^6/uL (3.82-5.3); RED CELL DISTRIBUTION WIDTH 16.1 % (9.6-15.2)
[2020-11-18 21:05] LABS: MD NO
[2020-11-18 21:19] LABS: AMPHETAMINE SCREEN, URINE Negative (Negative); BARBITURATE SCREEN, URINE Positive (Negative); BENZODIAZEPINE SCREEN, URINE Negative (Negative); CANNABINOID SCREEN, URINE Negative (Negative); COCAINE SCREEN, URINE Negative (Negative); METHADONE SCREEN, URINE Negative (Negative); OPIATE SCREEN, URINE Negative (Negative)
[2020-11-18] MEDS ORDERED: KETOROLAC 30 MG/1 ML IVPush ONE (21:30)
[2020-11-18] MEDS ORDERED: KETOROLAC 30 MG/1 ML ONE (21:47)
[2020-11-18 22:29] VITALS: BP 135/71
--- NOTE | 2020-11-18 22:47 | NUR ---
PT REPORTS ESPINO IS BETTER. VITALS REMAIN STABLE.
--- NOTE | 2020-11-18 22:52 | NUR ---
PT AMBULATING WITH CANE, DENIES DIZZINESS.
== END 2020-11-18 22:49 | disposition home or self-care (01) ==
LOC: ED 21:14
DX: G43.909 Migraine, unspecified, not intractable, without status migrainosus (principal); I10 Essential (primary) hypertension; E11.9 Type 2 diabetes mellitus without complications; E78.00 Pure hypercholesterolemia, unspecified; G89.29 Other chronic pain; E66.01 Morbid (severe) obesity due to excess calories; Z68.42 Body mass index [BMI] 45.0-49.9, adult; Z86.73 Personal history of transient ischemic attack (TIA), and cerebral infarction without residual deficits
CPT/HCPCS: 36415; 70450; 80053; 80307; 85025; 85610; 85730; 93005; 96374; 96375; 99285; J0780; J1200; J1885

== ENCOUNTER 2021-02-21 14:42 | Inpatient (IN) | payer MEDICAID ==
[~2021-02-21] VITALS: Ht 170.2 cm; Wt 135.6 kg
[~2021-02-21 14:42] MED LIST changes: +PROC10VI IV; -PROC10VI3 IV
--- NOTE | 2021-02-21 14:57 | NUR ---
NIL X1.
--- NOTE | 2021-02-21 15:07 | NUR ---
EKG DONE IN TRIAGE.
[2021-02-21] MEDS ORDERED: SODIUM CHLORIDE 0.9% 1,000ML IVBOLUS ONE (15:30)
[2021-02-21] MEDS ORDERED: SODIUM CHLORIDE FLUSH 10ML SYR IVF ONE (15:30)
--- NOTE | 2021-02-21 15:36 | NUR ---
PT C/O OF DIZZINESS AND LEFT SIDED WEAKNESS SINCE 2 HOURS AGO ERMD ALREADY EVALUATED PT FOR STROKE SYMTPOMMS IN TRIAGE. PT REPORTS TIGHTNESS AND PRESSURE IN CHEST WITRH MILD SOB. ATTACHED TO CARD/SP02/BP MONITORS. VSS. NADN AT MOMENT BED IN LOW, RAILS ENAGGED. CALL LIGHT ON LAP.
[2021-02-21 15:39] LABS: BASOPHILS % (AUTO) 1 % (0-1); EOSINOPHILS % (AUTO) 3 % (1-7); LYMPHOCYTES % (AUTO) 30 % (22-44); MEAN CORPUSCULAR HEMOGLOBIN 27.5 pg (27.0-34.8); MEAN CORPUSCULAR HGB CONC 33.1 g/dL (32.4-35.8); MEAN PLATELET VOLUME 9.4 fL (7.4-10.4); MONOCYTES % (AUTO) 7 % (2-9); NEUTROPHILS % (AUTO) 59 % (42-75); PLATELET COUNT 298 x10^3/uL (130-400); RED BLOOD COUNT 5.34 x10^6/uL (3.82-5.3); RED CELL DISTRIBUTION WIDTH 15.7 % (9.6-15.2)
[2021-02-21 15:43] LABS: ALANINE AMINOTRANSFERASE 48 U/L (12-78); ALBUMIN 3.2 g/dL (3.4-5.0); ANION GAP 9 mmol/L (5-15); CALCIUM 9.7 mg/dL (8.5-10.1); CHLORIDE 97 mmol/L (98-107)
[2021-02-21 15:46] LABS: ALKALINE PHOSPHATASE 101 U/L (45-117); BILIRUBIN,TOTAL 0.4 mg/dL (0.2-1.0); CREATININE 1.76 mg/dL (0.55-1.02); TOTAL PROTEIN 7.7 g/dL (6.4-8.2)
[2021-02-21 15:47] LABS: ACETONE, SERUM Negative (Negative)
--- NOTE | 2021-02-21 16:14 | NUR ---
Patient is resting comfortably in bed. Bed in lowest, rails engaged, call light on lap. Vital Signs within normal limits. WCNANY. NADN. MCNALLY STATED SHE WOULD CHANGE CLEAN CATCH TO STRAIGHT CATHTETER. PT DID NOT FEEL COMFORTABLE STANDING AND GOING TO BATHROOM. PT TOLERATED STRAIGHT CATH WELL.
[2021-02-21 16:20] LABS: MICROSCOPIC INDICATED
[2021-02-21] MEDS ORDERED: ONDANSETRON 2MG/ML, 2ML ONE (16:42)
[2021-02-21] MEDS ORDERED: MORPHINE SULFATE 4 MG/ML, 1ML ONE ×2 (16:42→19:11)
[2021-02-21] MEDS: MORPHINE SULFATE 4 MG/ML, 1ML IVPush PRN ×2 (16:46→19:21)
--- NOTE | 2021-02-21 16:48 | NUR ---
PTRESTING IN BED. PT APPEARS IN PAIN. PT MEDICATED PER MD ORDER. VSS ON RA. BRETAHING EVEN AND UNLABORED. WCTM
[2021-02-21] MEDS ORDERED: ONDANSETRON 2MG/ML, 2ML IVPush ONE (17:00)
--- NOTE | 2021-02-21 17:41 | NUR ---
PT O2 TITRATED TO RA TO TEST O2SAT PT O2 ON RA DESATURATED TO 86%. WCTM
[2021-02-21] MEDS ORDERED: DEXAMETHASONE 4 MG/ML, 1ML IV ONE (19:00)
[2021-02-21] MEDS ORDERED: DOXYCYCLINE 100MG TABLET PO ONE (19:00)
[2021-02-21] MEDS ORDERED: CEFTRIAXONE 1,000 MG in DEXTROSE 5% 50 ML IVPB ONE (19:00)
[2021-02-21] MEDS ORDERED: DEXAMETHASONE 4 MG/ML, 1ML ONE (19:10)
[2021-02-21] MEDS ORDERED: DOXYCYCLINE 100MG TABLET ONE (19:11)
[2021-02-21] MEDS ORDERED: SODIUM CHLORIDE FLUSH 10ML SYR IVF PRN (19:30)
--- NOTE | 2021-02-21 19:38 | NUR ---
BREAK RN: PT RESTING IN [facility], PT MEDICATED PER EMAR, PER PT NO NEEDS AT THIS TIME.
[2021-02-21 19:42] LABS: C-REACTIVE PROTEIN, QUANT 1.4 mg/dL (0.02-0.49)
[2021-02-21 19:45] LABS: D-DIMER (DIC) 0.31 ug/mlFEU (0.00-0.52)
--- NOTE | 2021-02-21 20:39 | NUR ---
GAVE REPORT TO HECTOR GONZALES
[2021-02-21] MEDS ORDERED: DOCUSATE 100 MG CAPSULE PO PRN (21:30)
[2021-02-21] MEDS ORDERED: MELATONIN 5 MG TABLET PO PRN (21:30)
[2021-02-21] MEDS ORDERED: SODIUM CHLORIDE 0.9% 1,000 ML IV SCH (21:30)
[2021-02-21] MEDS ORDERED: ONDANSETRON ODT 4 MG PO PRN (21:30)
[2021-02-21] MEDS ORDERED: ACETAMINOPHEN 325 MG TABLET PO PRN (21:30)
[2021-02-21] MEDS ORDERED: AMLO-150 PO (21:37)
[2021-02-21] MEDS ORDERED: DIVA125T2 PO (21:37)
--- NOTE | 2021-02-21 21:43 | NUR ---
LATEENTRY DUE TO PT CARE. PT GIVEN S[place]ICH, SUNCHIPS, AND TO GLASSES OF ICE WATER. PT RESTING IN BED, NADN. NO PAIN. A&OX4, BREATHING EVEN AND UNLABORED WITH SUP O2. AT BEDSIDE. CALL LIGHT ON LAP. NO ADDITONAL NEED OR QUESTIONS AT THIS TIME. WCTM
--- NOTE | 2021-02-21 21:45 | NUR ---
PT RIGHT EYE BLOOD SHOT RED. PT SAYS SHE GETS THEM ALOT WHEN SHE HAS MIGRAINES. STATES 6 TIMES THIS YEAR ALREADY
--- NOTE | 2021-02-21 22:23 | NUR ---
LATE ENTRY DUE TO PT CARE. PT DIAGNOSED WITH COVID 19 A COUPLE WEEKS AGO. STATING PT MAY HAVE COVID DUE TO LIVING IN SAME HOME.
--- NOTE | 2021-02-21 22:28 | NUR ---
GAVE REPORT TO ARLET GONZALES
[2021-02-21 22:57] VITALS: BP 150/84
[2021-02-22] MEDS ORDERED: HYDROcodone/APAP 5/325 TABLET PO PRN (01:00)
[2021-02-22] MEDS: TRAZODONE 50MG TABLET PO SCH ×2 (01:23→21:01)
[2021-02-22] MEDS: GABAPENTIN 400 MG CAPSULE PO SCH ×4 (01:23→21:00)
[2021-02-22] MEDS: ATORVASTATIN 40 MG TABLET PO SCH ×2 (01:23→21:01)
[2021-02-22 01:24] VITALS: BP 135/82
[2021-02-22 05:11] LABS: BASOPHILS % (AUTO) 1 % (0-1); EOSINOPHILS % (AUTO) 0 % (1-7); LYMPHOCYTES % (AUTO) 15 % (22-44); MEAN CORPUSCULAR HEMOGLOBIN 28.2 pg (27.0-34.8); MEAN CORPUSCULAR HGB CONC 33.5 g/dL (32.4-35.8); MEAN PLATELET VOLUME 9.3 fL (7.4-10.4); MONOCYTES % (AUTO) 3 % (2-9); NEUTROPHILS % (AUTO) 82 % (42-75); PLATELET COUNT 238 x10^3/uL (130-400); RED BLOOD COUNT 4.83 x10^6/uL (3.82-5.3); RED CELL DISTRIBUTION WIDTH 15.9 % (9.6-15.2)
[2021-02-22 05:23] LABS: CHLORIDE 103 mmol/L (98-107)
[2021-02-22 05:32] LABS: ANION GAP 6 mmol/L (5-15); CALCIUM 8.9 mg/dL (8.5-10.1); CREATININE 1.24 mg/dL (0.55-1.02)
[2021-02-22] MEDS: INSULIN LISPRO 100 UNITS/ML, PEN SQ-INSULIN SCH ×4 (07:00→21:02)
[2021-02-22 08:18] VITALS: BP 138/83
[2021-02-22] MEDS: FENOFIBRATE 145 MG TABLET PO SCH (08:24)
[2021-02-22] MEDS: FLUOXETINE 10 MG CAP PO SCH (08:24)
[2021-02-22] MEDS: DIVALPROEX 500 MG TABLET.DR PO SCH (08:25)
[2021-02-22] MEDS: DOXYCYCLINE 100MG TABLET PO SCH ×2 (08:25→21:01)
[2021-02-22] MEDS: AMLODIPINE 5 MG TABLET PO SCH (08:25)
[2021-02-22] MEDS: LOSARTAN 100 MG TAB PO SCH (08:25)
[2021-02-22] MEDS: AIMOVIG PO SCH (08:26)
[2021-02-22] MEDS: INSULIN GLARGINE 100 UNITS/ML, PEN SQ-INSULIN SCH ×2 (09:41→21:03)
[2021-02-22 12:37] LABS: TROPONIN I < 0.015 ng/mL (0.000-0.045)
[2021-02-22 13:50] VITALS: BP 103/71
[2021-02-22] MEDS ORDERED: CYANOCOBALAMIN 1,000 MCG/ML, 1ML IM ONE (16:30)
[2021-02-22] MEDS ORDERED: REMDESIVIR 200 MG in SODIUM CHLORIDE 0.9% 250 ML IVPB ONE (17:30)
[2021-02-22] MEDS: ASCORBIC ACID 500 MG TABLET PO SCH (17:37)
[2021-02-22] MEDS: FLUTICASONE/VILANTEROL 100-25MCG/INH INH SCH (17:38)
[2021-02-22 20:53] VITALS: BP 92/62
[2021-02-23 03:04] VITALS: BP 112/75
[2021-02-23 05:46] LABS: BASOPHILS % (AUTO) 0 % (0-1); EOSINOPHILS % (AUTO) 4 % (1-7); LYMPHOCYTES % (AUTO) 44 % (22-44); MEAN CORPUSCULAR HEMOGLOBIN 27.5 pg (27.0-34.8); MEAN CORPUSCULAR HGB CONC 32.6 g/dL (32.4-35.8); MEAN PLATELET VOLUME 9.4 fL (7.4-10.4); MONOCYTES % (AUTO) 6 % (2-9); NEUTROPHILS % (AUTO) 46 % (42-75); PLATELET COUNT 217 x10^3/uL (130-400); RED CELL DISTRIBUTION WIDTH 15.7 % (9.6-15.2)
[2021-02-23 06:10] LABS: ALBUMIN 2.7 g/dL (3.4-5.0); CHLORIDE 105 mmol/L (98-107)
[2021-02-23 06:18] LABS: ANION GAP 6 mmol/L (5-15); CREATININE 0.98 mg/dL (0.55-1.02)
[2021-02-23 07:00] VITALS: BP 128/84
[2021-02-23] MEDS: INSULIN LISPRO 100 UNITS/ML, PEN SQ-INSULIN SCH ×4 (08:00→22:16)
[2021-02-23] MEDS: DIVALPROEX 500 MG TABLET.DR PO SCH (08:01)
[2021-02-23] MEDS: FENOFIBRATE 145 MG TABLET PO SCH (08:01)
[2021-02-23] MEDS: FLUOXETINE 10 MG CAP PO SCH (08:01)
[2021-02-23] MEDS: ZINC SULFATE 220 MG CAPSULE PO SCH (08:01)
[2021-02-23] MEDS: ASCORBIC ACID 500 MG TABLET PO SCH ×2 (08:02→17:27)
[2021-02-23] MEDS: DOXYCYCLINE 100MG TABLET PO SCH ×2 (08:02→21:34)
[2021-02-23] MEDS: MULTIVITS,STRESS FORMULA 1 TABLET PO SCH (08:02)
[2021-02-23] MEDS: GABAPENTIN 400 MG CAPSULE PO SCH ×3 (08:02→21:34)
[2021-02-23] MEDS: AMLODIPINE 5 MG TABLET PO SCH (08:02)
[2021-02-23] MEDS: LOSARTAN 100 MG TAB PO SCH (08:02)
[2021-02-23] MEDS: CHOLECALCIFEROL 5,000u TAB PO SCH (08:02)
[2021-02-23] MEDS: AIMOVIG PO SCH (08:02)
[2021-02-23] MEDS: FLUTICASONE/VILANTEROL 100-25MCG/INH INH SCH (08:04)
[2021-02-23] MEDS: INSULIN GLARGINE 100 UNITS/ML, PEN SQ-INSULIN SCH ×2 (08:07→22:16)
[2021-02-23 11:01] LABS: BILIRUBIN,TOTAL 0.2 mg/dL (0.2-1.0)
[2021-02-23 14:14] VITALS: BP 130/84
[2021-02-23] MEDS ORDERED: REMDESIVIR 100 MG in SODIUM CHLORIDE 0.9% 250 ML IVPB SCH (17:30)
[2021-02-23 19:27] VITALS: BP 137/81
[2021-02-23] MEDS: ATORVASTATIN 40 MG TABLET PO SCH (21:34)
[2021-02-23] MEDS: TRAZODONE 50MG TABLET PO SCH (21:34)
[2021-02-24 02:26] VITALS: BP 105/71
[2021-02-24 06:17] LABS: ALBUMIN 2.6 g/dL (3.4-5.0); ANION GAP 4 mmol/L (5-15); CALCIUM 9.2 mg/dL (8.5-10.1); CHLORIDE 107 mmol/L (98-107)
[2021-02-24 06:20] LABS: ALANINE AMINOTRANSFERASE 45 U/L (12-78); ALKALINE PHOSPHATASE 72 U/L (45-117); BILIRUBIN,TOTAL 0.2 mg/dL (0.2-1.0); CREATININE 0.79 mg/dL (0.55-1.02); TOTAL PROTEIN 6.4 g/dL (6.4-8.2)
[2021-02-24 06:37] VITALS: BP 162/87
[2021-02-24] MEDS: INSULIN LISPRO 100 UNITS/ML, PEN SQ-INSULIN SCH ×2 (07:00→11:45)
[2021-02-24] MEDS: FLUOXETINE 10 MG CAP PO SCH (08:22)
[2021-02-24] MEDS: ASCORBIC ACID 500 MG TABLET PO SCH (08:22)
[2021-02-24] MEDS: GABAPENTIN 400 MG CAPSULE PO SCH (08:22)
[2021-02-24] MEDS: FENOFIBRATE 145 MG TABLET PO SCH (08:22)
[2021-02-24] MEDS: DOXYCYCLINE 100MG TABLET PO SCH (08:23)
[2021-02-24] MEDS: DIVALPROEX 500 MG TABLET.DR PO SCH (08:23)
[2021-02-24] MEDS: CHOLECALCIFEROL 5,000u TAB PO SCH (08:23)
[2021-02-24] MEDS: MULTIVITS,STRESS FORMULA 1 TABLET PO SCH (08:23)
[2021-02-24] MEDS: AMLODIPINE 5 MG TABLET PO SCH (08:23)
[2021-02-24] MEDS: ZINC SULFATE 220 MG CAPSULE PO SCH (08:23)
[2021-02-24] MEDS: FLUTICASONE/VILANTEROL 100-25MCG/INH INH SCH (08:24)
[2021-02-24] MEDS: LOSARTAN 100 MG TAB PO SCH (08:24)
[2021-02-24] MEDS: AIMOVIG PO SCH (08:24)
[2021-02-24] MEDS: INSULIN GLARGINE 100 UNITS/ML, PEN SQ-INSULIN SCH (08:25)
[2021-02-24] MEDS ORDERED: ASCO500T9 PO (11:39)
[2021-02-24] MEDS ORDERED: ZINC220C8 PO (11:39)
[2021-02-24] MEDS ORDERED: CHOL500045 PO (11:39)
[2021-02-24] MEDS ORDERED: ASPI325T17 PO (11:40)
[2021-02-24 13:37] VITALS: BP 121/84
== END 2021-02-24 14:11 | disposition home or self-care (01) | DRG 720 ==
LOC: ED 19:10 → EDIP 19:35 → 5SO 22:45
PROVIDERS: ADMIT Internal Medicine; ATTEND Family Medicine
PROC: XW033E5 Introduction of Remdesivir Anti-infective into Peripheral Vein, Percutaneous Approach, New Technology Group 5 (ICD-10-PCS; principal; 2021-02-22)
DX: A41.89 Other specified sepsis (principal); J96.01 Acute respiratory failure with hypoxia; J12.82 Pneumonia due to coronavirus disease 2019; N17.0 Acute kidney failure with tubular necrosis; E66.2 Morbid (severe) obesity with alveolar hypoventilation; I69.354 Hemiplegia and hemiparesis following cerebral infarction affecting left non-dominant side; J15.9 Unspecified bacterial pneumonia; U07.1 COVID-19; E11.40 Type 2 diabetes mellitus with diabetic neuropathy, unspecified; E11.65 Type 2 diabetes mellitus with hyperglycemia; E78.00 Pure hypercholesterolemia, unspecified; I10 Essential (primary) hypertension; G43.009 Migraine without aura, not intractable, without status migrainosus; Z79.4 Long term (current) use of insulin; Z68.42 Body mass index [BMI] 45.0-49.9, adult; Z88.8 Allergy status to other drugs, medicaments and biological substances; Z90.710 Acquired absence of both cervix and uterus; Z91.041 Radiographic dye allergy status; Z83.3 Family history of diabetes mellitus
CPT/HCPCS: 36415; 71045; 80048; 80053; 80069; 81001; 82010; 82247; 82728; 82800; 82962; 83036; 83605; 83615; 83735; 84100; 84145; 84450; 84460; 84484; 85025; 85049; 85379; 85384; 85610; 85730; 86140; 87040; 93005; 96374; 96375; 96376; 99285; G0378; J0696; J1100; J2405; U0005; J1815; J2270; J3420; J7030; J7050; U0003